=== PATIENT | female | born 1960 | race Caucasian/White ===

== ENCOUNTER 2016-11-02 00:07 | Emergency (ER) | payer BC ==
[2015-06-19 09:22] VITALS: BMI 33.0
[~2016-11-02 00:07] MED LIST: ASPIRIN EC81 M1 PO; BENADRYL50 MG PO; COREG6.25 MG PO; DYAZIDE 37.5/251 CAP PO; HEMOCYTE PLUS C1 CAP PO; HYDROCODONE-APA1 TAB PO; MINIPRESS2 MG PO; NEURONTIN 300300 MG PO; NORVASC5 MG PO; PLAVIX75 MG PO; POTASSIUM CHLO10 ME1 PO; PREDNISONE20 MG PO; PREDNISONE50 MG PO; PROTONIX20 MG PO; PROTONIX40 MG PO
== END 2016-11-02 02:08 | disposition home or self-care (01) ==
LOC: D.ER 00:07
DX: R22.42 Localized swelling, mass and lump, left lower limb (principal); I10 Essential (primary) hypertension; E78.5 Hyperlipidemia, unspecified; I73.9 Peripheral vascular disease, unspecified

== ENCOUNTER 2017-03-25 07:20 | Outpatient (CLI) | payer BC ==
--- NOTE | ~2017-03-25 | HEMODYNAMI ---
PATIENT:ALYSIA MISTRY MEDICAL RECORD: [id number] : 62 LOCATION:[facility] ADMISSION DATE: 03/25/17 Generatedon:03/25/201710:42 Patient name: ALYSIA MISTRY Patient #: [id number] SSN: : 1960 Date of study: 03/25/2017 Page: Of Hemodynamic Procedure Report Patient Data Patient Demographics Procedure consent was obtained First Name: ALYSIA Gender: Female Last Name: FIDELIA : 1960 [facility] Initial: L Age: 56 year(s) Patient #: [id number] Race: Additional ID: [id number] Contact details Address: [address] [place] [address] State: [place] City: [facility] Zip code: [address] Past Medical History History of disease Date Diagnosis Comments PVD Hypertension Allergies Allergen Reaction Date Comments Reported Sulfa drugs 07/05/2014 Other allergy 06/03/2015 Iodine Admission Admission Data Admission Date: 03/25/2017 Admission Time: 7:20 Height (in.): 63 BSA: 1.85 (m2) Height (cm.): 160.02 BMI: 32.06 (kg/m2) Weight (lbs.): 181 Weight (kg.): 82.1 Procedure Procedure Types Cath Procedure Miscellaneous Procedures Moderate Sedation up to 30 minutes Peripheral Cath Diagnostic Procedure Cath Peripheral Aowtg-Hvtnqbu-Kis-Off Peripheral vascular Intervention Stent Stent Iliac w/plasty Initial Stent-Fem/Popw/plasty Procedure Description Procedure Date Procedure Date: 03/25/2017 Procedure Start Time: 10:07 Procedure End Time: 10:41 Procedure Staff Name Function Peter Breaux MD Performing Physician Ayde Aguirre RT Scrub Biju Knapp RN Nurse Jewell Mccall RT Monitor Procedure Data Cath Procedure Fluoroscopy Diagnostic fluoroscopy Total fluoroscopy Time: 8.3 time: 8.3 min min Diagnostic fluoroscopy Total fluoroscopy dose: 772 dose: 772 mGy mGy Contrast Material Contrast Material Type Amount (ml) Isovue 300 158 Entry Location Entry Primary Successful Side Size Upsize Upsize Entry Closure Succes sful Closure Location (Fr) 1 (Fr) 2 (Fr) Remarks Device Remarks Femoral Right 5 Fr 6 Fr 6 Fr Exoseal artery Long Short Estimated blood loss: 5 ml Diagnostic catheters Device Type Used For End Catheter Placement Cordis Tempo 5Fr UF Multi-vessel catheter Angiography Procedure Complications No complications Procedure Medications Medication Administration Route Dosage Oxygen NC 2 l/min Lidocaine 2% added to field 20 Heparin Flush Bag added to field 2 bags (1000units/500ml NS) 0.9% NaCl 100 ml/hr Versed I.V. 2 mg Fentanyl I.V. 100 mcg Versed I.V. 1 mg Fentanyl I.V. 50 mcg Versed I.V. 1 mg Fentanyl I.V. 50 mcg Heparin Bolus I.V. 5000 units Versed I.V. 1 mg Fentanyl I.V. 50 mcg Hemodynamics Rest BSA: 1.85 (m2) O2 Consumption: Estimated: 182.29 (ml/min) O2 Consumption indexed : Estimated:98.54 (ml/min/m) Heart Rate: 76 (bpm) Snapshots Pre Cath Intra NCS Post Cath Vital Signs Time Heart Resp SPO2 etCO2 NIBP (mmHg) Rhythm Pain Sedation Rate (ipm) (%) (mmHg) Status Level (bpm) 9:52:22 74 14 100 0 131/58(110) NSR 0 (11) 10(A) , No pain 9:57:35 74 17 97 0 148/69(102) NSR 0 (11) 10(A) , No pain 10:01:43 68 14 97 0 119/62(106) NSR 0 (11) 10(A) , No pain 10:06:03 71 15 5 0 106/59(79) NSR 0 (11) 9(A) , No pain 10:10:13 74 19 100 0 127/70(103) NSR 0 (11) 9(A) , No pain 10:14:29 70 19 100 0 138/71(103) NSR 0 (11) 9(A) , No pain 10:18:41 69 18 98 0 120/62(95) NSR 0 (11) 9(A) , No pain 10:22:53 71 16 98 0 109/63(85) NSR 0 (11) 9(A) , No pain 10:27:05 71 22 97 0 106/58(87) NSR 0 (11) 9(A) , No pain 10:31:15 73 25 98 0 104/56(86) NSR 0 (11) 10(A) , No pain 10:35:25 71 17 100 0 116/66(89) NSR 0 (11) 10(A) , No pain 10:39:39 75 12 100 0 130/63(100) NSR 0 (11) 10(A) , No pain Medications Time Medication Route Dose Verified Delivered Reason Notes Effectiveness by by 9:56:20 Oxygen NC 2 Peter Buffie used for l/min Namita Knapp RN procedure 9:56:27 Lidocaine 2% added 20ml Peter Peter for local to vial Namita Breaux MD anesthetic field 9:56:33 Heparin Flush added 2 Peter Peter used for Bag to bags Namita Breaux MD procedure (1000units/500ml field NS) 9:56:47 0.9% NaCl 100 Peter Buffie Per physician ml/hr Namita Knapp RN 10:02:12 Versed I.V. 2 mg Peter Buffie for sedation Namita Knapp RN 10:02:20 Fentanyl I.V. 100 Peter Buffie for sedation mcg Namita Knapp RN 10:06:54 Versed I.V. 1 mg Peter Buffie for sedation Namita Knapp RN 10:06:58 Fentanyl I.V. 50 Peter Buffie for sedation mcg Namita Knapp RN 10:13:19 Versed I.V. 1 mg Peter Buffie for sedation Namita Knapp RN 10:13:24 Fentanyl I.V. 50 Peter Buffie for sedation mcg Namita Knapp RN 10:17:41 Heparin Bolus I.V. 5000 Peter Buffie for verifi ed units Namita Knapp RN anticoagulation with dr breaux 10:21:26 Versed I.V. 1 mg Peter Buffie for sedation Namita Knapp RN 10:21:31 Fentanyl I.V. 50 Peter Buffie for sedation mcg Namita Knapp RN Procedure Log Time Note 9:31:50 Patient Height : 63 inches 9:31:56 Patient Weight : 181 lbs 9:32:39 Diagnostic Cath status Elective 9:32:41 Ayde Aguirre RT(R) sent for patient. Start room use. 9:32:42 Time tracking: Regular hours 9:32:48 Plan of Care:Hemodynamics will remain stable., Cardiac rhythm will remain stable., Comfort level will be maintained., Respiratory function will remain adequate., Patient/ family verbilizes understanding of procedure., Procedure tolerated without complication., Recovers from procedure without complications.. 9:32:57 Use device set Femoral Dx 9:32:59 Acist Syringe opened to sterile field. 9:33:00 Bag Decanter opened to sterile field. 9:33:01 Medline Cath Pack opened to sterile field. 9:33:02 Terumo 5Fr Salley Sheath opened to sterile field. 9:33:04 St Rian 260cm J .035 wire opened to sterile field. 9:33:10 Acist Hand Control opened to sterile field. 9:33:11 Acist Manifold opened to sterile field. 9:33:12 Tegaderm 4 x 4 opened to sterile field. 9:51:01 Patient received from Pre/Post Procedure Room to CCL 3 Alert and oriented. Tansferred to table in Supine position. 9:51:02 Warm blankets applied, and rosanne hugger turned on for patient comfort. 9:51:02 Correct patient and procedure confirmed by team. 9:51:04 Signed procedure consent form obtained from patient. 9:51:05 ECG and BP/O2 sat monitors applied to patient. 9:51:06 Vital chart was started 9:51:11 Full Disclosure recording started 9:51:25 H&P Date Dictated: 03/17/2017 Within 30 days and on chart., H&P Addendum completed by physician on day of procedure. (MUST COMPLETE FOR ALL OUTPATIENTS). 9:51:26 Pre-procedure instructions explained to patient. 9:51:27 Pre-op teaching completed and patient verbalized understanding. 9:51:28 Family in waiting room. 9:51:33 Patient NPO since Midnight. 9:51:47 Is the patient allergic to Iodine/contrast media? No. 9:51:49 Was the patient premedicated? No 9:51:50 Is patient on blood thinner?Yes 9:51:53 ACC The patient was administered the following blood thiners within the last 24 hours: ACCPlavix 9:52:07 Patient diabetic? No. 9:52:10 Previous problem with sedation/anesthesia? No ? 9:52:15 Snore? Yes 9:52:16 Sleep apnea? Yes 9:52:18 Deviated septum? No 9:52:18 Opens mouth fully? Yes 9:52:19 Sticks out tongue? Yes 9:52:22 Airway obstruction? No ? 9:52:27 Dentures? Yes in tight 9:56:20 Oxygen 2 l/min NC was administered by Biju Knapp RN; used for procedure; :56: Lidocaine 2% 20ml vial added to field was administered by Peter Breaux MD; for local anesthetic; :56:33 Heparin Flush Bag (1000units/500ml NS) 2 bags added to field was administered by Peter Breaux MD; used for procedure; 9:56:47 0.9% NaCl 100 ml/hr was administered by Biju Knapp RN; Per physician; 10:00:53 Pre procedure: right dorsailis pedis pulse Doppler 10:00:56 Pre procedure: left dorsailis pedis pulse 1+ Palpable, but thready & weak; easily obliterated 10:01:00 Patient pain scale 0/10 ?. 10:01:15 IV patent on arrival in left forearm with 0.9% NaCl at [facility]. 10:01:21 Lab results completed and on chart. 10:01:24 Bilateral groins area was prepped with chlora-prep and draped in sterile fashion 10::27 Alarms reviewed by R. N. 10:: Sharps counted by scrub and verified by R.N. ::29 Physician arrived :: --------ALL STOP TIME OUT------ : Final Timeout: patient, procedure, and site verified with staff and physician. All members of the team are in agreement. 10:01:32 Bilateral groins site verified by team. 10::35 Physical assessment completed. ASA score P 2 - A patient with mild systemic disease as per Peter Breaux MD. 10:01:38 Sedation plan: IV Moderate Sedation Versed, Fentanyl 10:01:48 Procedure started. 10:02:12 Versed 2 mg I.V. was administered by Biju Knapp RN; for sedation; 10:02:20 Fentanyl 100 mcg I.V. was administered by Biju Knapp RN; for sedation; 10:06:54 Versed 1 mg I.V. was administered by Biju Knapp RN; for sedation; 10:06:58 Fentanyl 50 mcg I.V. was administered by Biju Knapp RN; for sedation; 10:07:53 Local anesthetic to right femoral artery with Lidocaine 2% by Peter Breaux MD.INITIAL ACCESS ONLY 10:08:03 A 5 Fr sheath was inserted into the Right Femoral artery 10:08:18 Baseline sample Acquired. 10:11:48 A CordDIREVO [employer] Tempo 5Fr UF catheter was advanced over the wire and used for Multi-vessel Angiography. 10:11:52 Abdominal angiogram w/ runoff was performed. 10:13:19 Versed 1 mg I.V. was administered by Biju Knapp RN; for sedation; 10:13:21 Cordis 6Fr Brite Tip 35cm Sheath opened to sterile field. 10:13:24 Fentanyl 50 mcg I.V. was administered by Biju Knapp RN; for sedation; 10:13:51 Arrow 6Fr 45cm Sheath opened to sterile field. 10:14:01 Terumo Super Stiff Angled 260cm glide wire opened to sterile field. 10:14:37 Sheath upsized to a 6 Fr Long. 10:14:49 long stiff glide wire advanced. 10:15:49 Terumo 6Fr Salley Sheath opened to sterile field. 10:17:41 Heparin Bolus 5000 units I.V. was administered by Biju Knapp RN; for anticoagulation; verified with dr breaux 10:19:38 Wire advanced across lesion. 10:20:42 Inflation number: 1 A Cordis Powerflex Pro 6.0 X 20 X 135 balloon was prepped and advanced across the Proximal Common Femoral, Left, then inflated to 7 JASMIN for 0:10 (min:sec). 10:20:46 Inflation number: 2 The Cordis Powerflex Pro 6.0 X 20 X 135 balloon was reinflated across the Proximal Common Femoral, Left, to 7 JASMIN for 0:10 (min:sec). 10:20:52 Inflation number: 3 The Cordis Powerflex Pro 6.0 X 20 X 135 balloon was reinflated across the Proximal Common Femoral, Left, to 7 JASMIN for 0:10 (min:sec). 10:21:26 Versed 1 mg I.V. was administered by Biju Knapp RN; for sedation; 10::31 Fentanyl 50 mcg I.V. was administered by Biju Knapp RN; for sedation; 10:23:01 Balloon removed over the wire. 10:24:14 Cordis SMART 6 X 40 X 120 stent was deployed across Proximal Common Femoral, Left . 10:24:27 Stent catheter was removed intact over wire. 10:25:07 Inflation number: 4 The Cordis Powerflex Pro 6.0 X 20 X 135 balloon was reinflated across the Proximal Common Femoral, Left, to 9 JASMIN for 0:10 (min:sec). 10:25:12 Inflation number: 5 The Cordis Powerflex Pro 6.0 X 20 X 135 balloon was reinflated across the Proximal Common Femoral, Left, to 11 JASMIN for 0:10 (min:sec). 10:25:22 Inflation number: 6 The Cordis Powerflex Pro 6.0 X 20 X 135 balloon was reinflated across the Proximal Common Femoral, Left, to 11 JASMIN for 0:10 (min:sec). 10:27:16 Balloon removed over the wire. 10:29:07 Inflation Number: 1 A Cordis Saida 6 x 29 x 135 stent was prepped and advanced across the Proximal Common Iliac, Left. The stent was deployed at 9 JASMIN for 0:10 (min:sec). 10:29:48 Stent catheter was removed intact over wire. 10:29:59 Sheath upsized to a 6 Fr Short. 10:30:08 Cordis 6Fr Exoseal opened to sterile field. 10:30:25 Wire removed. 10:30:37 Sheath removed intact; hemostasis achieved with Exoseal to the Right Femoral artery. 10:30:39 Procedure ended.(Physican Out) 10:34:33 Fluoroscopy time 08.30 minutes. 10:34:37 Fluoroscopy dose: 772 mGy 10:34:37 Flurop Dose total: 772 10:34:44 Contrast amount:Isovue 300 158ml. 10:34:47 Sharps counted by scrub and verified by R.N. 10:34:50 Insertion/operative site no bleeding no hematoma. 10:34:53 Post-op/insertion site Right Femoral artery dressed using a 4 x 4 and Tegaderm. 10:34:57 Post right femoral artery:stable 10:35:11 Post procedure rhythm: unchanged. 10:38:41 Estimated blood loss: 5 ml 10:38:43 Post procedure instruction explained to patient.Patient verbalizes understanding. 10:38:43 Patient needs reinforcement of post procedure teaching. 10:41:15 Procedure type changed to Cath procedure, Miscellaneous Procedures, Moderate Sedation up to 30 minutes, Peripheral Cath Diagnostic Procedure, Cath Peripheral, Kloul-Cbxyhud-Ibr-Off, Peripheral vascular Intervention, Stent, Stent Iliac w/plasty Initial, Stent-Fem/Popw/plasty 10:41:26 Procedure and supply charges have been captured, reviewed, submitted and are correct. 10:41:31 Procedure Complication : No complications 10:41:34 Vital chart was stopped 10:41:34 See physician's report for complete and final results. 10:41:38 Report given to Pre/Post Procedure Room. 10:41:40 Patient transfered to Pre/Post Procedure Room with Stretcher. 10:41:42 Procedure ended. 10:41:42 Full Disclosure recording stopped 10:41:50 ACC-PCI Only Patient was given prescriptions, or instructed by Peter Breaux MD to start/continue the following medications upon discharge: Plavix 10:41:52 End room use (Document Last) Intervention Summary Intervention Notes Time ActionType Lesion and Equipment Action# Pressure Duration Attributes Used 10:20:42 Inflate Proximal Cordis 1 7 00:10 balloon Common Powerflex Femoral, Pro 6.0 X Left 20 X 135 balloon 10:20:46 Reinflate Proximal Cordis 2 7 00:10 balloon Common Powerflex Femoral, Pro 6.0 X Left 20 X 135 balloon 10:20:52 Reinflate Proximal Cordis 3 7 00:10 balloon Common Powerflex Femoral, Pro 6.0 X Left 20 X 135 balloon 10:24:14 Deploy self Proximal Cordis 1 expanding Common SMART 6 X stent Femoral, 40 X 120 Left stent 10:25:07 Reinflate Proximal Cordis 4 9 00:10 balloon Common Powerflex Femoral, Pro 6.0 X Left 20 X 135 balloon 10:25:12 Reinflate Proximal Cordis 5 11 00:10 balloon Common Powerflex Femoral, Pro 6.0 X Left 20 X 135 balloon 10:25:22 Reinflate Proximal Cordis 6 11 00:10 balloon Common Powerflex Femoral, Pro 6.0 X Left 20 X 135 balloon 10:29:[address] stent Proximal Cordis 1 9 00:10 Common Saida 6 Iliac, Left x 29 x 135 stent Device Usage Item Name Manufacture Quantity Catalog Hospital Part Current Minimal Lot # / Number Charge Number Stock Stock Serial# Code Acist Acist 1 [id number] [id number] [id number] 302832 20 Syringe [employer] Inc Bag Microtek 1 2002S 424659 42806 433240 5 Decanter [employer] Inc. Medline Cardinal 1 [id number] [id number] 82406 892454 5 Cath Pack Health Terumo Terumo 1 [id number] 960663 883321 745199 [address] Rian St Rian 1 684239 189768 986240 372337 30 260cm J .035 wire Acist Acist 1 20832 480557 887642 149932 5 Hand Medical Control Systems Inc Acist Acist 1 59429 593179 393767 750680 5 Manifold Medical Systems Inc Tegaderm 3M 1 1626W 845567 954446 277728 5 4 x 4 Cordis Cardinal 1 [id number] 786760 430607 002183 10 Tempo 5Fr Health UF catheter Cordis Cardinal 1 [id number] 335880 177909 742285 1 6Fr Brite Health Tip 35cm Sheath Arrow 6Fr Teleflex 1 [id number] 329926 907070 394995 5 45cm Sheath Terumo Terumo 1 [id number] 466342 817394 433842 5 Super Stiff Angled 260cm glide wire Terumo Terumo 1 [id number] 630734 672760 804665 40 6Fr Salley Sheath Cordis Cardinal 1 [id number] 973277 324637 461875 5 Powerflex Health Pro 6.0 X 20 X 135 balloon Cordis Cardinal 1 [id number] 152649 451503 0 176 39898 SMART 6 X Health 40 X 120 stent Cordis Cardinal 1 [id number] 253905 533724 5 175 71381 Saida 6 Health x 29 x 135 stent Cordis Cardinal 1 [id number] 230766 004512 713631 10 6Fr Health Exoseal Signature Audit [place] Stage Time Signature Unsigned Intra-Procedure 03/25/2017 Jewell Mccall 10:42:35 AM RT(R) Signatures Monitor : Jewell Mccall RT Signature : Date : Time : [address] [place] [address]
[2017-03-25] MEDS ORDERED: CARDURA4 MG PO (07:39)
[2017-03-25] MEDS ORDERED: DYAZIDE 37.5/251 CAP PO (07:40)
[2017-03-25 07:45] VITALS: BP 129/52; BMI 33.0
[2017-03-25 08:00] LABS: BASOPHILS 0.5 % (0-2); EOSINOPHILS 1.8 % (0-7); HEMATOCRIT 37.6 % (36.0-48.0); HEMOGLOBIN 12.5 g/dL (12-16); IMMATURE GRANULOCYTES 0.1 % (0-5); MCH 27.6 pg (26.0-34.0); MCHC 33.2 g/dL (31.0-37.0); MEAN PLATELET VOLUME 9.5 fL (7.4-10.4); MONOCYTES 5.8 % (2-11); NEUTROPHILS 71.8 % (40-80); PLATELET COUNT 446 10x3/uL (130-400); RBC 4.53 10x6/uL (4.00-5.40); RDW 13.8 % (11.5-14.5); WBC 9.8 10x3/uL (4.8-10.8)
[2017-03-25 08:07] LABS: ANION GAP 11.4 mmol/L (8-16); CALCIUM 9.2 mg/dL (8.5-10.1); CARBON DIOXIDE 28.4 mmol/L (21.0-32.0); CREATININE - SERUM 1.3 mg/dL (0.6-1.3)
[2017-03-25 08:09] LABS: POTASSIUM - SERUM 2.8 mmol/L (3.5-5.1)
--- NOTE | 2017-03-25 11:05 | NUR ---
2L NC, NO RESP DISTRESS NOTED. RIGHT GROIN 6F EXOSEAL CDI, NO BLEEDING OR HEMATOMA NOTED. NO C/O PAIN OR NAUSEA. VSS. FAMILY AT BEDSIDE, CALL LIGHT WITHIN REACH.
--- NOTE | 2017-03-25 14:01 | NUR ---
HOB ELEVATED 30 DEGREES. RIGHT GROIN 6F EXOSEAL CDI, NO BLEEDING OR HEMATOMA NOTED.
--- NOTE | 2017-03-25 14:11 | NUR ---
LEFT FA PIV D/C'D WITH CATHETER INTACT, BAND AID TO SITE. UP TO RESTROOM TO VOID.
--- NOTE | 2017-03-25 14:32 | NUR ---
RIGHT GROIN REMAINS C/D/I AFTER AMBULATING. BACK TO BEDSIDE TO DRESS. D/C INSTRUCTIONS DISCUSSSED WITH PATIENT AND AT BEDSIDE. WHEELED OUT VIA WHEELCHAIR BY CATH TEAM.
--- NOTE | 2017-04-08 16:56 | OP ---
PATIENT NAME: ALYSIA MISTRY MEDICAL RECORD: [id number] :62 LOCATION:D.CAT ADMISSION DATE: SURGEON: JUDY MAURICE MD DATE OF OPERATION: 03/25/2017 DATE OF SERVICE: 03/25/2017 PROCEDURES: 1. PTCA stent, iliac, left. 2. GRADUATE TEACHING ASSOCIATE stent, common femoral, left. 3. Aortofemoral runoff. 4. Abdominal aortography. INDICATION: Claudication and peripheral vascular disease. PROCEDURE IN DETAIL: After informed consent was obtained and after detailed explanation of risks, benefits as well as alternative therapies, the patient elected to proceed with angiogram and angioplasty. The right femoral area was prepped and draped in normal sterile fashion. The right femoral artery was cannulated via modified Seldinger technique with placement of a 6-Kyrgyz rphuzf-ikc-zzyo sheath. All catheters exchanged through this sheath. FINDINGS: The abdominal aortography was performed. The catheter was pulled down for aortofemoral runoff. Abdominal aortography reveals no significant abdominal aortic disease. No dissection or aneurysm formation. No renal artery stenosis. RIGHT LEG: A. Iliac: The common internal and external iliacs have piqb-sy-vafwqfkm irregularities, but no flow-limiting stenosis. B. Femoral system: The common and deep femoral are widely patent. The superficial femoral has a total occlusion in the mid vessel. This is approximately 60 cm of total occlusion, his then reconstitutes distally. The distal SFA appears to be patent. C. Popliteal and infrapopliteal vessels appear to be patent with preserved 3-vessel runoff to the foot. LEFT LEG: A. Iliac: The common iliac has 80% to 90% stenosis. There is then a previously placed stent in the external iliac that is patent. After this, the common femoral has 80% to 90% stenosis after this. The SFA is totally occluded, but there is a femoral popliteal graft that is patent. The distal vasculature is severely diffusely diseased, but patent. B. GRADUATE TEACHING ASSOCIATE stent of the common femoral and iliac: The iliac was addressed with 7 x 29 Saida stent. The common femoral with a 6 x 40 SMART stent. Balloon dilatation was made with a 6.0 balloon first. This yielded suboptimal results with severe intimal dissection requiring stenting. OVERALL IMPRESSION: Successful percutaneous transluminal angioplasty stent of the left iliac and left common femoral. Both going from 80% to 90% initial stenosis to 0% residual. TRANSINT:[id number] Voice Confirmation ID: [id number] DOCUMENT ID: [id number] OPERATIVE REPORT [id number] ALYSIA MISTRY JEFFREY MD at 1656 CC: [id number] DICTATION DATE: 03/25/17 1037 IN FLIGHT REFUELING MANAGER: 03/25/17 1249 DEP CLI 03/25/17 [place] [id number]
== END 2017-03-25 14:34 | disposition home or self-care (01) ==
LOC: D.CATH 07:20
PROVIDERS: Internal Medicine Interventional Cardiology
DX: I70.213 Atherosclerosis of native arteries of extremities with intermittent claudication, bilateral legs (principal); I10 Essential (primary) hypertension; R00.2 Palpitations; Z87.891 Personal history of nicotine dependence

== ENCOUNTER → 2017-03-30 14:15 | Outpatient (CLI) | payer BC ==
[2017-03-25 07:45] VITALS: BMI 33.0
[~2017-03-30 14:15] MED LIST changes: +CARDURA4 MG PO
== END | disposition home or self-care (01) ==
LOC: D.MAMMO 09:45
DX: Z12.31 Encounter for screening mammogram for malignant neoplasm of breast (principal)

== ENCOUNTER 2017-08-06 11:14 | Inpatient (IN) | payer BC ==
[~2017-08-06] VITALS: Ht 157.5 cm; Wt 80.7 kg
[2017-08-06 11:51] LABS: APPEARANCE CLOUDY (CLEAR); BILIRUBIN NEGATIVE (NEGATIVE); COLOR YELLOW (YELLOW); GLUCOSE NEGATIVE (NEGATIVE); KETONE MODERATE mg/dL (NEGATIVE); NITRITE NEGATIVE (NEGATIVE); PROTEIN 3+ mg/dL (NEGATIVE); UROBILINOGEN NORMAL (NORMAL)
[2017-08-06 11:53] LABS: BACTERIA MANY /hpf (NONE SEEN); EPITHELIAL CELLS 0-5 /hpf (0-5); RED CELLS - URINE 0-5 /hpf (0-5)
[2017-08-06 12:01] LABS: BASOPHILS 0.2 % (0-2); EOSINOPHILS 0.5 % (0-7); HEMATOCRIT 37.1 % (36.0-48.0); HEMOGLOBIN 12.5 g/dL (12-16); IMMATURE GRANULOCYTES 0.4 % (0-5); LYMPHOCYTES 13.5 % (15-50); MCH 26.4 pg (26.0-34.0); MCHC 33.7 g/dL (31.0-37.0); MCV 78.3 fL (80.0-100.0); MEAN PLATELET VOLUME 9.3 fL (7.4-10.4); MONOCYTES 5.9 % (2-11); NEUTROPHILS 79.5 % (40-80); PLATELET COUNT 462 10x3/uL (130-400); RBC 4.74 10x6/uL (4.00-5.40); RDW 13.4 % (11.5-14.5); WBC 13.9 10x3/uL (4.8-10.8)
[2017-08-06 12:13] LABS: ALBUMIN 3.2 g/dL (3.4-5.0); ANION GAP 14.6 mmol/L (8-16); BILIRUBIN - TOTAL 0.4 mg/dL (0.2-1.3); CALCIUM 9.7 mg/dL (8.5-10.1); CARBON DIOXIDE 25.9 mmol/L (21.0-32.0); CREATININE - SERUM 1.2 mg/dL (0.6-1.3); POTASSIUM - SERUM 3.5 mmol/L (3.5-5.1); PROTEIN - SERUM 8.7 g/dL (6.4-8.2)
[2017-08-06 16:31] LABS: CKMB 0.4 U/L (0.0-3.6); CREATINE KINASE 34 UL (21-215)
[2017-08-06 16:33] LABS: TROPONIN-I < 0.017 ng/mL (0.000-0.060)
[2017-08-06 17:47] VITALS: BP 143/59; BMI 31.7
[2017-08-07 06:20] VITALS: BP 108/41
[2017-08-07 06:25] LABS: BASOPHILS 0.2 % (0-2); EOSINOPHILS 2.2 % (0-7); HEMATOCRIT 34.3 % (36.0-48.0); HEMOGLOBIN 11.4 g/dL (12-16); IMMATURE GRANULOCYTES 0.4 % (0-5); MCH 26.4 pg (26.0-34.0); MCHC 33.2 g/dL (31.0-37.0); MCV 79.4 fL (80.0-100.0); MEAN PLATELET VOLUME 9.3 fL (7.4-10.4); MONOCYTES 7.5 % (2-11); NEUTROPHILS 72.7 % (40-80); PLATELET COUNT 433 10x3/uL (130-400); RBC 4.32 10x6/uL (4.00-5.40); RDW 13.4 % (11.5-14.5); WBC 11.1 10x3/uL (4.8-10.8)
[2017-08-07 07:02] LABS: CALC OSMOLALITY 268 mosm/kg (275-300); CALCIUM 8.8 mg/dL (8.5-10.1); CARBON DIOXIDE 23.6 mmol/L (21.0-32.0); CHLORIDE - SERUM 99 mmol/L (98-107); CKMB 0.7 U/L (0.0-3.6); CREATINE KINASE 37 UL (21-215); GLUCOSE 116 mg/dL (74-106); POTASSIUM - SERUM 3.2 mmol/L (3.5-5.1); SODIUM 133 mmol/L (136-145); TROPONIN-I < 0.017 ng/mL (0.000-0.060); UREA NITROGEN 17 mg/dL (7-18); eGFR NON AFRICAN AMERICAN 61 mL/min (90-120)
[2017-08-07 08:33] VITALS: BP 123/58
[2017-08-07 12:06] VITALS: BP 106/68
[2017-08-07 16:29] VITALS: BP 129/65
[2017-08-07 20:00] VITALS: BP 110/39
[2017-08-08 04:00] VITALS: BP 124/60
[2017-08-08 05:34] LABS: ALBUMIN 2.4 g/dL (3.4-5.0); BILIRUBIN - TOTAL 0.21 mg/dL (0.2-1.3); CALCIUM 8.5 mg/dL (8.5-10.1); CARBON DIOXIDE 26.4 mmol/L (21.0-32.0); CREATININE - SERUM 0.9 mg/dL (0.6-1.3); PROTEIN - SERUM 6.6 g/dL (6.4-8.2)
[2017-08-08 05:35] LABS: ANION GAP 11.3 mmol/L (8-16); POTASSIUM - SERUM 3.7 mmol/L (3.5-5.1)
[2017-08-08 08:25] VITALS: BP 95/73
[2017-08-08 11:47] VITALS: BP 112/58
[2017-08-08 13:02] VITALS: Ht 157.5 cm; Wt 80.7 kg
[2017-08-08 15:54] VITALS: BP 109/44
[2017-08-08 17:30] VITALS: BP 155/58
[2017-08-08 21:15] VITALS: BP 152/62
[2017-08-09 04:00] VITALS: BP 149/66
[2017-08-09 05:59] LABS: ALBUMIN 2.4 g/dL (3.4-5.0); ANION GAP 12.6 mmol/L (8-16); BILIRUBIN - TOTAL 0.25 mg/dL (0.2-1.3); CALCIUM 8.7 mg/dL (8.5-10.1); CARBON DIOXIDE 28.9 mmol/L (21.0-32.0); CREATININE - SERUM 0.9 mg/dL (0.6-1.3); POTASSIUM - SERUM 3.5 mmol/L (3.5-5.1); PROTEIN - SERUM 6.8 g/dL (6.4-8.2)
[2017-08-09 08:46] VITALS: BP 121/64
[2017-08-09 11:53] VITALS: BP 134/66
[2017-08-09 15:59] VITALS: BP 173/77
[2017-08-09 20:56] VITALS: BP 142/61
[2017-08-10 01:20] VITALS: BP 150/66
[2017-08-10 06:05] LABS: ALBUMIN 2.5 g/dL (3.4-5.0); ANION GAP 13.9 mmol/L (8-16); BILIRUBIN - TOTAL 0.3 mg/dL (0.2-1.3); CARBON DIOXIDE 27.2 mmol/L (21.0-32.0); CREATININE - SERUM 0.9 mg/dL (0.6-1.3); POTASSIUM - SERUM 3.1 mmol/L (3.5-5.1)
[2017-08-10 06:40] VITALS: BP 117/55
[2017-08-10] MEDS ORDERED: POTASSIUM CHLO20 MEQ PO (07:04)
[2017-08-10] MEDS ORDERED: ADVAIR 250/501 DISK INH (07:06)
[2017-08-10] MEDS ORDERED: LEVAQUIN750 MG PO (07:06)
[2017-08-10 08:35] VITALS: BP 125/69
[2017-08-10 15:24] VITALS: BP 133/62
== END 2017-08-10 16:53 | disposition home or self-care (01) | DRG 640 ==
LOC: D.ER 11:14 → D.M2 17:08 → OBSVTIME 17:09 → D.M2 08-07 18:06
PROVIDERS: Family Medicine
DX: E86.0 Dehydration (principal); J18.9 Pneumonia, unspecified organism; E87.6 Hypokalemia; I10 Essential (primary) hypertension; I70.209 Unspecified atherosclerosis of native arteries of extremities, unspecified extremity; K52.9 Noninfective gastroenteritis and colitis, unspecified

== ENCOUNTER → 2017-12-30 07:56 | Outpatient (CLI) | payer BC ==
[~2017-12-30] VITALS: Ht 157.5 cm; Wt 77.3 kg
--- NOTE | ~2017-12-30 | OP ---
PATIENT NAME: ALYSIA MISTRY MEDICAL RECORD: [id number] :62 LOCATION:D.CAT ADMISSION DATE: SURGEON: JUDY MAURICE MD DATE OF OPERATION: 12/30/2017 PROCEDURES: 1. MIDDLE OR INTERMEDIATE SCHOOL PRINCIPAL, left iliac. 2. MIDDLE OR INTERMEDIATE SCHOOL PRINCIPAL, left common femoral. 3. Aortofemoral runoff. 4. Abdominal aortography. INDICATION: Claudication and peripheral vascular disease. PROCEDURE IN DETAIL: After informed consent was obtained and after a detailed description of risks, benefits as well as alternative therapies, the patient elected to proceed with angiogram and angioplasty. The right femoral area was prepped and draped in normal sterile fashion. Right femoral artery was cannulated via modified Seldinger technique with placement of 6-Burmese sheath. All catheters exchanged through this sheath. FINDINGS: The abdominal aortography was performed. The catheter was pulled down for aortofemoral runoff. Abdominal aortography reveals no significant abdominal aortic disease, no dissection or aneurysm formation. RIGHT LEG: A. Iliac: The common internal and external iliacs have previously placed stents, these are widely patent. B. Femoral system: The common and deep femoral are widely patent. Superficial femoral has a 95% stenosis proximally followed by multiple areas of 90% to 95% stenosis. The distal superficial femoral reconstitutes via collaterals off the deep. It does appear to have decent lumen suitable for grafting. C. Popliteal and infrapopliteal vessels do appear to be diffusely diseased, but patent. LEFT LEG: A. Iliac: The common internal and external iliacs have previously placed stents. There is 80% in-stent restenosis times 2. B. Femoral system: The common and deep femoral are patent at the distal end of the stents and in the common femoral there is 80% stenosis. The superficial femoral was totally occluded throughout its entire course. It reconstitutes distally off collaterals from the deep femoral system. It does appear to have a good lumen suitable for grafting. C. Popliteal and infrapopliteal vessels appear to be patent with good 3-vessel runoff to the foot. MIDDLE OR INTERMEDIATE SCHOOL PRINCIPAL OF THE ILIAC AND COMMON FEMORAL LEFT: We were able to place jpsbzz-kjs-mbxm sheath and used a 6.0 balloon for high pressure MIDDLE OR INTERMEDIATE SCHOOL PRINCIPAL of the areas of in-stent restenosis in the common femoral, at the very distal end of the stents. Result was 0% residual stenosis with bahai of brisk distal flow allowing the patient to be evaluated for femoral popliteal bypass surgery. OVERALL IMPRESSION: Successful MIDDLE OR INTERMEDIATE SCHOOL PRINCIPAL for in-stent restenosis of the left iliac and common femoral, opening this area up to the common femoral with good flow. Superficial femoral was totally occluded, cannot be approached via transcatheter approach, but a femoral popliteal bypass surgery would be an option for this OPERATIVE REPORT [id number] ALYSIA MISTRY MILDRED patient as well as femoral popliteal bypass for the right leg. TRANSINT:[id number] Voice Confirmation ID: [id number] DOCUMENT ID: [id number] JUDY MAURICE MD at 1325 CC: [id number] DICTATION DATE: 12/30/17 1123 PATIENT RELATIONS DIRECTOR: 12/30/17 1202 DEP CLI 12/30/17 [place] [id number] [place] [address]
--- NOTE | ~2017-12-30 | HEMODYNAMI ---
PATIENT:ALYSIA MISTRY MEDICAL RECORD: [id number] : 62 LOCATION:[facility] ADMISSION DATE: 12/30/17 Generatedon:12/30/201711:26 Patient name: ALYSIA MISTRY Patient #: [id number] SSN: : 1960 Date of study: 12/30/2017 Page: Of Hemodynamic Procedure Report Patient Data Patient Demographics Procedure consent was obtained First Name: ALYSIA Gender: Female Last Name: FIDELIA : 1960 [facility] Initial: MILDRED Age: 57 year(s) Patient #: [id number] Race: Additional ID: [id number] Contact details Address: [address] [place] [address] State: [place] City: [facility] [place] Zip code: [address] Past Medical History History of disease Date Diagnosis Comments PVD Hypertension Allergies Allergen Reaction Date Comments Reported Sulfa drugs 07/05/2014 Other allergy 06/03/2015 Iodine Sulfa drugs 12/30/2017 Admission Admission Data Admission Date: 12/30/2017 Admission Time: 7:56 Lab Results Lab Result Date: 12/30/2017 Lab Result Time: 0:00 Biochemistry Name Units Result Min Max BUN mg/dl 11 --(-*--)-- 7 18 Creatinine mg/dl 1.1 --(--*-)-- 0.6 1.3 CBC Name Units Result Min Max Hemoglobin g/dl 12.5 *-(----)-- 13.5 17.5 Procedure Procedure Types Cath Procedure Diagnostic Procedure Sedation Charges Moderate Sedation up to 15 minutes Peripheral Cath Diagnostic Procedure Cath Peripheral Ngepa-Oqjlcoc-Xtw-Off Peripheral vascular Intervention Angioplasty Angioplasty Fem/Pop Angioplasty Iliac Initial Procedure Description Procedure Date Procedure Date: 12/30/2017 Procedure Start Time: 11:04 Procedure End Time: 11:23 Procedure Staff Name Function Peter Breaux MD Performing Physician Jewell Mccall RT Monitor Lata Hernandez RT Scrub Biju Knapp RN Nurse Procedure Data Cath Procedure Fluoroscopy Diagnostic fluoroscopy Total fluoroscopy Time: 4.7 time: 4.7 min min Diagnostic fluoroscopy Total fluoroscopy dose: 396 dose: 396 mGy mGy Contrast Material Contrast Material Type Amount (ml) Isovue 300 95 Entry Location Entry Primary Successful Side Size Upsize Upsize Entry Closure Succes sful Closure Location (Fr) 1 (Fr) 2 (Fr) Remarks Device Remarks Femoral Right 5 Fr 6 Fr 6 Fr Exoseal artery Long Short Estimated blood loss: 5 ml Diagnostic catheters Device Type Used For End Catheter Placement DIAGNOSTIC UF 5Fr Multi-vessel catheter ([id number]) Angiography Procedure Complications No complications Procedure Medications Medication Administration Route Dosage Oxygen NC 2 l/min Lidocaine 2% added to field 20 Heparin Flush Bag added to field 2 bags (1000units/500ml NS) 0.9% NaCl I.V. 100 ml/hr Versed I.V. 2 mg Fentanyl I.V. 100 mcg Heparin Bolus I.V. 5000 units Versed I.V. 1 mg Fentanyl I.V. 50 mcg Versed I.V. 1 mg Fentanyl I.V. 50 mcg Hemodynamics Rest Heart Rate: 83 (bpm) Snapshots Pre Cath Intra NCS Post Cath Vital Signs Time Heart Resp SPO2 etCO2 NIBP (mmHg) Rhythm Pain Sedation Rate (ipm) (%) (mmHg) Status Level (bpm) 10:56:42 68 18 96 22.4 126/48(90) NSR 0 (11) 10(A) , No pain 11:00:37 66 19 93 20 100/55(72) NSR 0 (11) 10(A) , No pain 11:05:32 69 13 94 17.9 115/60(79) NSR 0 (11) 10(A) , No pain 11:09:54 72 15 98 25.3 119/63(102) NSR 0 (11) 9(A) , No pain 11:15:02 69 17 98 20.1 109/60(95) NSR 0 (11) 9(A) , No pain 11:19:26 74 18 98 27.6 116/56(81) NSR 0 (11) 10(A) , No pain 11:23:48 78 10 98 10.4 100/55(82) NSR 0 (11) 10(A) , No pain Medications Time Medication Route Dose Verified Delivered Reason Notes Effectiveness by by 10:54:39 Oxygen NC 2 Peter Ivy used for l/min Namita Knapp RN procedure 10:54:47 Lidocaine 2% added 20ml Peter Peter for local to vial Namita Breaux MD anesthetic field 10:54:53 Heparin Flush added 2 Peter Peter used for Bag to bags Namita Breaux MD procedure (1000units/500ml field NS) 10:55:01 0.9% NaCl I.V. 100 Peter Buffie Per physician ml/hr Namita Knapp RN 11:03:33 Versed I.V. 2 mg Peter Buffie for sedation Namita Knapp RN 11:03:38 Fentanyl I.V. 100 Peter Buffie for sedation mcg Namita Knapp RN 11:08:05 Versed I.V. 1 mg Peter Buffie for sedation Namita Knapp RN 11:08:09 Fentanyl I.V. 50 Peter Buffie for sedation mcg Namita Knapp RN 11:10:09 Heparin Bolus I.V. 5000 Peter Mcadamsie for verifi ed units Namita Knapp RN anticoagulation with dr breaux 11:14:17 Versed I.V. 1 mg Peter Buffie for sedation Namita Knapp RN 11:14:20 Fentanyl I.V. 50 Peter Buffie for sedation mcg Namita Knapp RN Procedure Log Time Note 10:33:51 Biju Knapp RN sent for patient. Start room use. 10:33:52 Time tracking: Regular hours (M-F 7:00 - 5:00) 10:33:55 Plan of Care:Hemodynamics will remain stable., Cardiac rhythm will remain stable., Comfort level will be maintained., Respiratory function will remain adequate., Patient/ family verbilizes understanding of procedure., Procedure tolerated without complication., Recovers from procedure without complications.. 10:33:57 Signed procedure consent form obtained from patient. 10:34:15 H&P Date Dictated: 12/22/2017 Within 30 days and on chart., H&P Addendum completed by physician on day of procedure. (MUST COMPLETE FOR ALL OUTPATIENTS). 10:34:27 Patient allergic to Sulfa drugs 10:41:49 Patient received from Pre/Post Procedure Room to [facility] 2 Alert and oriented. Tansferred to table in Supine position. 10:41:50 Warm blankets applied, and rosanne hugger turned on for patient comfort. 10:41:50 Correct patient and procedure confirmed by team. 10::51 ECG and BP/O2 sat monitors applied to patient. ::47 Lab Result : Hemoglobin 12.5 g/dl ::47 Lab Result : Creatinine 1.1 mg/dl ::47 Lab Result : BUN 11 mg/dl 10:54:39 Oxygen 2 l/min NC was administered by Biju Knapp RN; used for procedure; ::47 Lidocaine 2% 20ml vial added to field was administered by Peter Breaux MD; for local anesthetic; 10:54:53 Heparin Flush Bag (1000units/500ml NS) 2 bags added to field was administered by Peter Breaux MD; used for procedure; 10:55:01 0.9% NaCl 100 ml/hr I.V. was administered by Biju Knapp RN; Per physician; 10:55:04 Vital chart was started 10:56:01 Baseline sample Acquired. 10:56:59 Rhythm: sinus rhythm 10:57:01 Full Disclosure recording started 10:57:02 Pre-procedure instructions explained to patient. 10:57:02 Pre-op teaching completed and patient verbalized understanding. 10:57:04 Family in patients room. 10:57:06 Patient NPO since Midnight. 10:57:35 Is the patient allergic to Iodine/contrast media? No. 10:57:37 Was the patient premedicated? No 10:57:37 Is patient on blood thinner?Yes 10:57:40 ACC The patient was administered the following blood thiners within the last 24 hours: ACCPlavix 10:57:44 Patient diabetic? No. 10:57:45 If diabetic: On Metformin? No 10:57:47 Previous problem with sedation/anesthesia? No ? 10:57:49 Snore? Yes 10:57:51 Sleep apnea? No 10:57:52 Deviated septum? No 10:57:53 Opens mouth fully? Yes 10:57:53 Sticks out tongue? Yes 10:57:55 Airway obstruction? No ? 10:58:00 Dentures? Yes in tight 10:58:04 Pre procedure: right dorsailis pedis pulse 2+ Normal; easily identifiable; not easily obliterated 10:58:07 Pre procedure: left dorsailis pedis pulse 2+ Normal; easily identifiable; not easily obliterated 10:58:09 Patient pain scale 0/10 ?. 10:58:15 IV patent on arrival in left forearm with 0.9% NaCl at [facility]. 10:58:18 Lab results completed and on chart. 10:58:40 Bilateral groins area was prepped with chlora-prep and draped in sterile fashion 10:58:41 Alarms reviewed by R. N. 10:58:41 Sharps counted by scrub and verified by R.N. 11:00:41 Zero performed for pressure channel P1 11::11 Physician arrived 11::12 --------ALL STOP TIME OUT------ 11::12 Final Timeout: patient, procedure, and site verified with staff and physician. All members of the team are in agreement. 11:01:15 Bilateral groins site verified by team. 11:01:18 Physical assessment completed. ASA score P 2 - A patient with mild systemic disease as per Peter Breaux MD. 11:01:22 Sedation plan: IV Moderate Sedation Medication:Versed, Fentanyl 11:01:35 Baseline sample Acquired. 11:01:58 Use device set Radial Dx or PCI 11:02:00 ACIST Syringe (81787) opened to sterile field. 11:02:00 Medline Cath Pack ([id number]) opened to sterile field. 11:02:01 Bag Decanter (2002S) opened to sterile field. 11:02:01 DIAGNOSTIC WIRE .035 260cm J wire (019309) opened to sterile field. 11:02:02 ACIST Hand Control (74400) opened to sterile field. 11:02:03 ACIST Manifold (16338) opened to sterile field. 11:02:04 Tegaderm 4 x 4 (1626W) opened to sterile field. 11:02:12 SHEATH 5Fr Prelude ([id number]) opened to sterile field. 11:03:28 Procedure started. 11:03:33 Versed 2 mg I.V. was administered by Biju Knapp RN; for sedation; 11:03:38 Fentanyl 100 mcg I.V. was administered by Biju Knapp RN; for sedation; 11:04:12 Local anesthetic to right femoral artery with Lidocaine 2% by Peter Breaux MD.INITIAL ACCESS ONLY 11:04:29 A 5 Fr sheath was inserted into the Right Femoral artery 11:04:42 A DIAGNOSTIC UF 5Fr catheter ([id number]) was advanced over the wire and used for Multi-vessel Angiography. 11:05:20 Abdominal angiogram w/ runoff was performed. 11:08:05 Versed 1 mg I.V. was administered by Biju Knapp RN; for sedation; 11:08:09 Fentanyl 50 mcg I.V. was administered by Biju Knapp RN; for sedation; 11:09:48 GLIDE WIRE Super Stiff Angled 260cm (GB3958) opened to sterile field. 11:09:50 SHEATH 6FR Destination (RSR01) opened to sterile field. 11:09:51 SHEATH 6Fr Prelude ([id number]) opened to sterile field. 11:09:51 INFLATOR Merit BasixCompak (XW5593) opened to sterile field. 11:10:09 Heparin Bolus 5000 units I.V. was administered by Biju Knapp RN; for anticoagulation; verified with dr breaux 11:10:14 Catheter removed. 11:10:30 Proceeding to intervention. 11:10:39 Sheath upsized to a 6 Fr Long. 11:10:58 TORQUE DEVICE PLASTIC .038 ( TD01) opened to sterile field. 11:12:08 Inflate balloon Inflation number: 1 A POWERFLEX PRO 6.0 X 20 X 135 balloon ([id number]) was prepped and advanced across the Proximal Common Femoral, Left, then inflated to 6 JASMIN for 0:10 (min:sec). 11:14:15 Inflation number: 1 The POWERFLEX PRO 6.0 X 20 X 135 balloon ([id number]) was reinflated across the Proximal Common Iliac, Left, to 15 JASMIN for 0:10 (min:sec). 11:14:17 Versed 1 mg I.V. was administered by Biju Knapp RN; for sedation; 11:14:20 Fentanyl 50 mcg I.V. was administered by Biju Knapp RN; for sedation; 11:15:05 Inflation number: 2 The POWERFLEX PRO 6.0 X 20 X 135 balloon ([id number]) was reinflated across the Proximal Common Iliac, Left, to 17 JASMIN for 0:10 (min:sec). 11:16:01 Balloon removed over the wire. 11:16:09 Sheath upsized to a 6 Fr Short. 11:20:41 EXOSEAL 6Fr (EX600) opened to sterile field. 11:20:52 Sheath removed intact; hemostasis achieved with Exoseal to the Right Femoral artery. 11:20:53 Procedure ended.(Physican Out) 11:21:02 Fluoroscopy time 04.70 minutes. 11:21:06 Fluoroscopy dose: 396 mGy 11:21:06 Flurop Dose total: 396 11:21:09 Contrast amount:Isovue 300 95ml. 11:21:15 Sharps counted by scrub and verified by R.N. 11:21:19 Insertion/operative site no bleeding no hematoma. 11:21:22 Post-op/insertion site Right Femoral artery dressed using a 4 x 4 and Tegaderm. 11:21:24 Post right femoral artery:stable 11:21:26 Post Procedure Pulses reassessed and unchanged 11:21:28 Post procedure rhythm: unchanged. 11:21:31 Estimated blood loss: 5 ml 11:21:32 Post procedure instruction explained to patient.Patient verbalizes understanding. 11:21:32 Patient needs reinforcement of post procedure teaching. 11:23:10 Procedure type changed to Cath procedure, Diagnostic procedure, Sedation Charges, Moderate Sedation up to 15 minutes, Peripheral Cath Diagnostic Procedure, Cath Peripheral, Ntrwe-Mlymaid-Ylz-Off, Peripheral vascular Intervention, Angioplasty, Angioplasty Fem/Pop, Angioplasty Iliac Initial 11:23:21 Procedure and supply charges have been captured, reviewed, submitted and are correct. 11:23:25 Procedure Complication : No complications 11:23:27 Vital chart was stopped 11:23:27 See physician's report for complete and final results. 11:23:30 Report given to Pre/Post Procedure Room. 11:23:33 Patient transfered to Pre/Post Procedure Room with Stretcher. 11:23:35 Procedure ended. 11:23:35 Full Disclosure recording stopped 11:23:44 ACC-PCI Only Patient was given prescriptions, or instructed by Peter Breaux MD to start/continue the following medications upon discharge: Plavix 11:23:47 End room use (Document Last) Intervention Summary Intervention Notes Time ActionType Lesion and Equipment Action# Pressure Duration Attributes Used 11:12:08 Inflate Proximal POWERFLEX 1 6 00:10 balloon Common PRO 6.0 X Femoral, 20 X 135 Left balloon ([id number]) 11:14:15 Reinflate Proximal POWERFLEX 1 15 00:10 balloon Common PRO 6.0 X Iliac, Left 20 X 135 balloon ([id number]) 11:15:05 Reinflate Proximal POWERFLEX 2 17 00:10 balloon Common PRO 6.0 X Iliac, Left 20 X 135 balloon ([id number]) Device Usage Item Name Manufacture Quantity Catalog Hospital Part Current Minimal Lot# / Number Charge Number Stock Stock Serial# Code ACIST Acist 1 87672 850215 337318 058896 20 Syringe Medical (74089) Systems Inc Medline Cath Cardinal 1 [id number] 049155 89022 073979 5 Pack Health ([id number]) Bag Decanter Microtek 1 2001S 673710 87136 922603 5 (2001S) Medical Inc. DIAGNOSTIC St Rian 1 105087 274558 800100 220692 30 WIRE .035 260cm J wire (249113) ACIST Hand Acist 1 40148 463477 909094 124519 5 Control Medical (94466) Systems Inc ACIST Acist 1 00286 617734 569249 240872 5 Manifold Medical (86472) Systems Inc Tegaderm 4 x 3M 1 1626W 071987 423971 762851 5 4 (1626W) SHEATH 5Fr Merit 1 [id number] 852638 765693 479773 5 Prelude Medical ([id number]) DIAGNOSTIC Cardinal 1 [id number] 751765 402788 471541 10 UF 5Fr Health catheter ([id number]) GLIDE WIRE Terumo 1 VB0790 965763 668739 576960 5 Super Stiff Angled 260cm (LF4249) SHEATH 6FR Terumo 1 RSR01 811390 19725 198826 5 Destination (RSR01) SHEATH 6Fr Merit 1 [id number] 803621 863510 383962 5 Prelude Medical ([id number]) INFLATOR Merit 1 XO4750 446595 869677 202155 15 Merit Medical BasixCompak (OH0540) TORQUE [place] 1 TD01 880089 364449 489765 5 DEVICE Scientific PLASTIC .038 ( TD01) POWERFLEX Cardinal 1 [id number] 114270 160356 831893 5 PRO 6.0 X 20 Health X 135 balloon ([id number]) EXOSEAL 6Fr Cardinal 1 EX600 615418 091993 648736 10 (EX600) Health Signature Audit [place] Stage Time Signature Unsigned Intra-Procedure 12/30/2017 Jewell Mccall 11:26:20 AM RT(R) Signatures Monitor : Jewell Mccall RT Signature : Date : Time : [id number] [place] [address]
[~2017-12-30 07:56] MED LIST changes: +ADVAIR 250/501 DISK INH; +LEVAQUIN750 MG PO; +POTASSIUM CHLO20 MEQ PO
[2017-12-30 08:43] VITALS: BP 113/51; Ht 157.5 cm; Wt 77.3 kg
[2017-12-30 09:08] LABS: ANION GAP 13.4 mmol/L (8-16); CALCIUM 9.1 mg/dL (8.5-10.1); CARBON DIOXIDE 27.5 mmol/L (21.0-32.0); CREATININE - SERUM 1.1 mg/dL (0.6-1.3); POTASSIUM - SERUM 3.9 mmol/L (3.5-5.1)
[2017-12-30 09:28] LABS: BASOPHILS 0.8 % (0-2); EOSINOPHILS 2.7 % (0-7); HEMATOCRIT 37.7 % (36.0-48.0); HEMOGLOBIN 12.5 g/dL (12-16); IMMATURE GRANULOCYTES 0.2 % (0-5); LYMPHOCYTES 20.9 % (15-50); MCH 26.1 pg (26.0-34.0); MCHC 33.2 g/dL (31.0-37.0); MCV 78.7 fL (80.0-100.0); MEAN PLATELET VOLUME 9.7 fL (7.4-10.4); MONOCYTES 6.3 % (2-11); NEUTROPHILS 69.1 % (40-80); PLATELET COUNT 394 10x3/uL (130-400); RBC 4.79 10x6/uL (4.00-5.40); RDW 14.1 % (11.5-14.5); WBC 9.2 10x3/uL (4.8-10.8)
== END | disposition home or self-care (01) ==
LOC: D.CATH 07:56
PROVIDERS: Internal Medicine Interventional Cardiology
DX: I70.219 Atherosclerosis of native arteries of extremities with intermittent claudication, unspecified extremity (principal); T82.856A Stenosis of peripheral vascular stent, initial encounter; Y83.8 Other surgical procedures as the cause of abnormal reaction of the patient, or of later complication, without mention of misadventure at the time of the procedure; I10 Essential (primary) hypertension

== ENCOUNTER → 2018-02-03 10:04 | Outpatient (CLI) | payer BC ==
[2017-12-30 08:43] VITALS: BMI 31.1
== END | disposition home or self-care (01) ==
LOC: D.CT 01-27 13:00
DX: J98.11 Atelectasis (principal); R05 Cough

== ENCOUNTER → 2018-03-16 16:23 | Outpatient (CLI) | payer BC ==
[2017-12-30 08:43] VITALS: BMI 31.1
== END | disposition home or self-care (01) ==
LOC: D.MAMMO 09:45
DX: Z12.31 Encounter for screening mammogram for malignant neoplasm of breast (principal)

== ENCOUNTER → 2018-05-31 09:33 | Outpatient (CLI) | payer BC ==
[2017-12-30 08:43] VITALS: BMI 31.1
[2018-05-31 10:03] LABS: BASOPHILS 0.3 % (0-2); EOSINOPHILS 0.9 % (0-7); HEMATOCRIT 33.5 % (36.0-48.0); IMMATURE GRANULOCYTES 0.3 % (0-5); LYMPHOCYTES 18.5 % (15-50); MCH 25.7 pg (26.0-34.0); MCHC 32.8 g/dL (31.0-37.0); MCV 78.3 fL (80.0-100.0); MEAN PLATELET VOLUME 9.1 fL (7.4-10.4); PLATELET COUNT 394 10x3/uL (130-400); RBC 4.28 10x6/uL (4.00-5.40); RDW 14.8 % (11.5-14.5); WBC 11.6 10x3/uL (4.8-10.8)
[2018-05-31 10:18] LABS: ANION GAP 15.2 mmol/L (8-16); CALCIUM 8.2 mg/dL (8.5-10.1); CARBON DIOXIDE 26.1 mmol/L (21.0-32.0); CREATININE - SERUM 0.9 mg/dL (0.6-1.3); POTASSIUM - SERUM 3.3 mmol/L (3.5-5.1)
== END | disposition home or self-care (01) ==
LOC: D.LAB 09:33
PROVIDERS: Internal Medicine Cardiovascular Disease
DX: Z01.812 Encounter for preprocedural laboratory examination (principal)

== ENCOUNTER 2018-06-30 07:32 | Outpatient (CLI) | payer BC ==
[~2018-06-30] VITALS: Ht 157.5 cm; Wt 82.3 kg
--- NOTE | ~2018-06-30 | HEMODYNAMI ---
PATIENT:ALYSIA MISTRY MEDICAL RECORD: [id number] : 62 LOCATION:[facility] ADMISSION DATE: 06/30/18 Generatedon:06/30/201810:05 Patient name: ALYSIA MISTRY Patient #: [id number] SSN: : 1960 Date of study: 06/30/2018 Page: Of Hemodynamic Procedure Report Patient Data Patient Demographics Procedure consent was obtained First Name: ALYSIA Gender: Female Last Name: FIDELIA : 1960 [facility] Initial: MILDRED Age: 58 year(s) Patient #: [id number] Race: Additional ID: [id number] Contact details Address: [address] [place] [address] State: [place] City: [facility] Zip code: [address] Past Medical History History of disease Date Diagnosis Comments PVD Hypertension Allergies Allergen Reaction Date Comments Reported Sulfa drugs 07/05/2014 Other allergy 06/03/2015 Iodine Sulfa drugs 12/30/2017 Sulfa drugs 06/30/2018 Admission Admission Data Admission Date: 06/30/2018 Admission Time: 7:32 Height (in.): 62 BSA: 1.84 (m2) Height (cm.): 157.48 BMI: 33.29 (kg/m2) Weight (lbs.): 182 Weight (kg.): 82.55 Procedure Procedure Types Cath Procedure Diagnostic Procedure Sedation Charges Moderate Sedation up to 15 minutes Peripheral Cath Diagnostic Procedure Nailer Machine Peripheral Procedures Ftzho-Gjdkhug-Lmq-Off Peripheral vascular Intervention Stent Stent-Fem/Popw/plasty Procedure Description Procedure Date Procedure Date: 06/30/2018 Procedure Start Time: 9:46 Procedure End Time: 10:05 Procedure Staff Name Function Peter Breaux MD Performing Physician Bria Pitts RT Monitor Lata Hernandez RT Scrub Lara Gill RN Nurse Biju Knapp RN Life Enrichment Manager Procedure Data Cath Procedure Fluoroscopy Diagnostic fluoroscopy Total fluoroscopy Time: 4.6 time: 4.6 min min Diagnostic fluoroscopy Total fluoroscopy dose: 183 dose: 183 mGy mGy Contrast Material Contrast Material Type Amount (ml) Isovue 300 93 Entry Location Entry Primary Successful Side Size Upsize Upsize Entry Closure Succes sful Closure Location (Fr) 1 (Fr) 2 (Fr) Remarks Device Remarks Femoral Right 5 Fr 6 Fr 6 Fr Exoseal artery Long Short Estimated blood loss: 5 ml Diagnostic catheters Device Type Used For End Catheter Placement DIAGNOSTIC UF 5Fr Abdominal catheter ([id number]) aortogram with runoff Procedure Complications No complications Procedure Medications Medication Administration Route Dosage 0.9% NaCl I.V. 100 ml/hr Oxygen etCO2 Nasal cannula 2 l/min Lidocaine 2% added to field 20 Heparin Flush Bag added to field 2 bags (1000units/500ml NS) Versed I.V. 2 mg Fentanyl I.V. 100 mcg Heparin Bolus I.V. 5000 units Versed I.V. 2 mg Fentanyl I.V. 50 mcg Versed I.V. 2 mg Fentanyl I.V. 50 mcg Hemodynamics Rest BSA: 1.84 (m2) O2 Consumption: Estimated: 175.4 (ml/min) O2 Consumption indexed: Estimated:95.33 (ml/min/m) Heart Rate: 69 (bpm) Snapshots Pre Cath Intra NCS Post Cath Vital Signs Time Heart Resp SPO2 etCO2 NIBP (mmHg) Rhythm Pain Sedation Rate (ipm) (%) (mmHg) Status Level (bpm) 9:33:12 88 14 100 32.2 143/119(134) NSR 0 (11) 10(A) , No pain 9:37:38 73 16 100 43.5 126/54(95) NSR 0 (11) 10(A) , No pain 9:41:54 73 10 96 32.2 113/59(94) NSR 0 (11) 10(A) , No pain 9:46:12 79 10 98 36.7 122/59(85) NSR 0 (11) 10(A) , No pain 9:50:26 79 16 97 14 104/54(81) NSR 0 (11) 10(A) , No pain 9:54:42 72 16 98 10.5 110/48(85) NSR 0 (11) 10(A) , No pain 9:58:56 74 13 98 25.5 109/59(82) NSR 0 (11) 9(A) , No pain 10:03:08 84 17 100 33 114/58(88) NSR 0 (11) 10(A) , No pain Medications Time Medication Route Dose Verified Delivered Reason Notes Effectiveness by by 9:35:06 0.9% NaCl I.V. 100 Peter Lara used for ml/hr Namita Gill horticultural therapist 9:35:13 Oxygen etCO2 2 Peter Lara used for Nasal l/min Namita Gill procedure cannula RN 9:35:18 Lidocaine 2% added 20ml Peter Peter for local to vial Namita Breaux MD anesthetic field 9:35:23 Heparin Flush added 2 Peter Peter used for Bag to bags Namita Breaux MD procedure (1000units/500ml field NS) 9:42:53 Versed I.V. 2 mg Peter Lara for sedation Namita Gill RN 9:42:58 Fentanyl I.V. 100 Peter Lara for sedation mcg Namita Gill RN 9:47:05 Versed I.V. 2 mg Peter Lara for sedation Namita Gill RN 9:47:18 Fentanyl I.V. 50 Peter Lara for sedation mcg Namita Gill RN 9:54:21 Heparin Bolus I.V. 5000 Peter Lara for verifi ed units Namita Gill anticoagulation with Dr. ORACIO Breaux 9:55:31 Versed I.V. 2 mg Peetr Lara for sedation Namita Gill RN 9:55:34 Fentanyl I.V. 50 Peter Lara for sedation mcg Namita Gill RN Procedure Log Time Note 9:18:13 Signed procedure consent form obtained from patient. 9:18:14 Diagnostic Cath status Elective 9:18:17 Biju Knapp RN sent for patient. Start room use. 9:18:18 Time tracking: Regular hours (M-F 7:00 - 5:00) 9:18:21 Plan of Care:Hemodynamics will remain stable., Cardiac rhythm will remain stable., Comfort level will be maintained., Respiratory function will remain adequate., Patient/ family verbilizes understanding of procedure., Procedure tolerated without complication., Recovers from procedure without complications.. 9:18:32 H&P Date Dictated: 06/14/2018 Within 30 days and on chart., H&P Addendum completed by physician on day of procedure. (MUST COMPLETE FOR ALL OUTPATIENTS). 9:18:38 Patient allergic to Sulfa drugs 9:19:07 Patient Height : 62 inches 9:19:34 Patient Weight : 182 lbs 9:28:19 Patient received from Pre/Post Procedure Room to CCL 1 Alert and oriented. Tansferred to table in Supine position. 9:28:20 Warm blankets applied, and rosanne hugger turned on for patient comfort. 9:28:20 Correct patient and procedure confirmed by team. 9:28:21 ECG and BP/O2 sat monitors applied to patient. 9:28:22 Full Disclosure recording started 9:31:54 Vital chart was started 9:35:06 0.9% NaCl 100 ml/hr I.V. was administered by Lara Gill RN; used for procedure; 9:35:13 Oxygen 2 l/min etCO2 Nasal cannula was administered by Lara Gill RN; used for procedure; 9:35:18 Lidocaine 2% 20ml vial added to field was administered by Peter Breaux MD; for local anesthetic; 9:35:23 Heparin Flush Bag (1000units/500ml NS) 2 bags added to field was administered by Peter Breaux MD; used for procedure; 9:39:52 Baseline sample Acquired. 9:39:58 Rhythm: sinus rhythm 9:40:00 Pre-procedure instructions explained to patient. 9:40:01 Pre-op teaching completed and patient verbalized understanding. 9:40:14 Family in waiting room. 9:40:17 Patient NPO since Midnight. 9:40:20 Is the patient allergic to Iodine/contrast media? No. 9:40:30 Is patient on blood thinner?Yes 9:40:34 Patient diabetic? No. 9:41:32 Previous problem with sedation/anesthesia? No ? 9:41:34 Snore? Yes 9:41:35 Sleep apnea? No 9:41:37 Deviated septum? No 9:41:39 Opens mouth fully? Yes 9:41:40 Sticks out tongue? Yes 9:41:42 Airway obstruction? No ? 9:41:47 Dentures? Yes IN 9:41:52 Pre procedure: right dorsailis pedis pulse 1+ Palpable, but thready & weak; easily obliterated 9:41:56 Pre procedure: left dorsailis pedis pulse 1+ Palpable, but thready & weak; easily obliterated 9:42:01 Patient pain scale 0/10 ?. 9:42:10 IV patent on arrival in left forearm with 0.9% NaCl at [facility]. 9:42:12 Lab results completed and on chart. 9:42:21 Bilateral groins area was prepped with chlora-prep and draped in sterile fashion 9:42:21 Alarms reviewed by R. N. 9:42:21 Sharps counted by scrub and verified by R.N. 9:42:23 Final Timeout: patient, procedure, and site verified with staff and physician. All members of the team are in agreement. 9:42:24 Right groin site verified by team. 9:42:34 Physical assessment completed. ASA score P 2 - A patient with mild systemic disease as per Peter Breaux MD. 9:42:37 Sedation plan: IV Moderate Sedation Medication:Versed, Fentanyl 9:42:53 Versed 2 mg I.V. was administered by Lara Gill RN; for sedation; 9:42:58 Fentanyl 100 mcg I.V. was administered by Lara Gill RN; for sedation; 9:43:09 Use device set CATH PACK 9:43:27 ACIST Syringe (59680) opened to sterile field. 9:43:27 ACIST Hand Control (39108) opened to sterile field. 9:43:28 ACIST Manifold (32973) opened to sterile field. 9:43:28 Medline Cath Pack ([id number]) opened to sterile field. 9:43:29 Bag Decanter (2002) opened to sterile field. 9:43:29 DIAGNOSTIC WIRE .035 260cm J wire (302095) opened to sterile field. 9:43:30 SHEATH 5FR [place] (UPE808) opened to sterile field. 9:46:05 Procedure started. 9:46:09 Local anesthetic to right femoral artery with Lidocaine 2% by Peter Breaux MD.INITIAL ACCESS ONLY 9:47:05 Versed 2 mg I.V. was administered by Lara Gill RN; for sedation; 9:47:18 Fentanyl 50 mcg I.V. was administered by Lara Gill RN; for sedation; 9:48:42 A 5 Fr sheath was inserted into the Right Femoral artery 9:48:50 A DIAGNOSTIC UF 5Fr catheter ([id number]) was advanced over the wire and used for Abdominal aortogram with runoff. 9:49:44 GLIDE WIRE Super Stiff Angled 260cm (ZK0774) opened to sterile field. 9:49:45 SHEATH 6FR Destination (RSR01) opened to sterile field. 9:49:56 INFLATOR Merit BasixCompak (NE0086) opened to sterile field. 9:50:11 SHEATH 6FR [place] (GQD572) opened to sterile field. 9:50:24 SS GLIDE wire advanced. 9:51:00 GLIDE WIRE ADVANCED DOWN LSFA. 9:51:10 Sheath upsized to a 6 Fr Long. 9:51:42 Wire removed. 9:52:45 CHOICE PT Extra Support J 300cm guide wire ([id number]) opened to sterile field. 9:54:21 Heparin Bolus 5000 units I.V. was administered by Lara Gill RN; for anticoagulation; verified with Dr. Breaux 9:55:31 Versed 2 mg I.V. was administered by Lara Gill RN; for sedation; 9:55:34 Fentanyl 50 mcg I.V. was administered by Lara Gill RN; for sedation; 9:55:50 Inflate balloon Inflation number: 1 A SABER 5.0 x 8 x 150 balloon ([id number]) was prepped and advanced across the Distal Common Femoral, Left, then inflated to 9 JASMIN for 0:10 (min:sec). 9:58:16 SMART 6 x 100 x 120 stent ([id number]) was deployed across Distal Common Femoral, Left . 9:58:48 Stent catheter was removed intact over wire. 9:59:47 Inflation number: 2 The SABER 5.0 x 8 x 150 balloon ([id number]) was reinflated across the Distal Common Femoral, Left, to 2 JASMIN for 0:23 (min:sec). 10:00:29 Balloon removed over the wire. 10:00:33 Wire removed. 10:01:00 Sheath upsized to a 6 Fr Short. 10:01:05 Sheath removed intact; hemostasis achieved with Exoseal to the Right Femoral artery. 10:01:08 Procedure ended.(Physican Out) 10:01:41 Fluoroscopy time 04.60 minutes. 10:01:45 Flurop Dose total: 183 10:01:45 Fluoroscopy dose: 183 mGy 10:02:01 Contrast amount:Isovue 300 93ml. 10:02:03 Sharps counted by scrub and verified by R.N. 10:02:15 Insertion/operative site no bleeding no hematoma. 10:02:21 Post-op/insertion site Right Femoral artery dressed using a 4 x 4 and Tegaderm. 10:02:24 Post right femoral artery:stable, clean and dry 10:02:25 Post Procedure Pulses reassessed and unchanged 10:02:28 Post-procedure physical assessment completed. ASA score P 2 - A patient with mild systemic disease as per Peter Breaux MD. 10:02:30 Post procedure rhythm: unchanged. 10:02:33 Estimated blood loss: 5 ml 10:02:34 Post procedure instruction explained to patient.Patient verbalizes understanding. 10:02:34 Patient needs reinforcement of post procedure teaching. 10:03:26 Procedure type changed to Cath procedure, Diagnostic procedure, Sedation Charges, Moderate Sedation up to 15 minutes, Peripheral Cath Diagnostic Procedure, Nailer Machine Peripheral Procedures, Ztwbq-Neaosst-Kmz-Off, Peripheral vascular Intervention, Stent, Stent-Fem/Popw/plasty 10:03:37 Procedure Complication : No complications 10:03:39 See physician's report for complete and final results. 10:03:46 Tegaderm 4 x 4 (1626W) opened to sterile field. 10:03:51 EXOSEAL 6Fr (EX600) opened to sterile field. 10:04:55 Procedure and supply charges have been captured, reviewed, submitted and are correct. 10:05:00 Vital chart was stopped 10:05:02 Report given to Pre/Post Procedure Room. 10:05:05 Patient transfered to Pre/Post Procedure Room with Stretcher. 10:05:14 Procedure ended. 10:05:14 Full Disclosure recording stopped 10:05:18 End room use (Document Last) Intervention Summary Intervention Notes Time ActionType Lesion and Equipment Action# Pressure Duration Attributes Used 9:55:50 Inflate Distal SABER 5.0 x 1 9 00:10 balloon Common 8 x 150 Femoral, balloon Left ([id number]) 9:58:16 Deploy self Distal SMART 6 x 1 expanding Common 100 x 120 stent Femoral, stent Left ([id number]) 9:59:47 Reinflate Distal SABER 5.0 x 2 2 00:24 balloon Common 8 x 150 Femoral, balloon Left ([id number]) Device Usage Item Name Manufacture Quantity Catalog Number Hospital Part Current Minim al Lot# / Charge Number Stock Stock Serial# Code ACIST Acist 1 96020 705073 349497 327004 20 Syringe Medical (12438) Systems Inc ACIST Hand Acist 1 14861 086651 053944 968834 5 Control Medical (01084) Systems Inc ACIST Acist 1 33587 365267 318057 342651 5 Manifold Medical (29423) Systems Inc Medline Medline 1 [id number] 277492 63057 665644 5 Cath Pack ([id number]) Bag Microtek 1 2001S 504013 61841 474313 5 Decanter Medical Inc. () DIAGNOSTIC St [place] 1 998147 959669 715582 314305 30 WIRE .035 260cm J wire (660774) SHEATH 5FR Terumo 1 FOH618 111419 571423 124787 5 [place] (XWQ333) DIAGNOSTIC Cardinal 1 [id number] 900129 185794 010077 10 UF 5Fr Health catheter ([id number]) GLIDE WIRE Terumo 1 TM7810 590599 688721 919621 5 Super Stiff Angled 260cm (OM3122) SHEATH 6FR Terumo 1 RSR01 730060 26953 287311 5 Destination (RSR01) INFLATOR Merit 1 LS8778 175384 639063 721287 15 [facility] Medical BasixCompak (OT3640) SHEATH 6FR Terumo 1 TPP517 597151 084858 185773 40 [place] (GWL431) CHOICE PT [place] 1 [id number] 439194 20181212 951300 5 Extra Scientific Support J 300cm guide wire ([id number]) SABER 5.0 x Cardinal 1 [id number] 485318 863712 773716 5 8 x 150 Health balloon ([id number]) SMART 6 x Cardinal 1 [id number] 948990 006462 0 [id number] 100 x 120 Health stent ([id number]) Tegaderm 4 3M 1 1626W 309421 960501 587918 5 x 4 (1626W) EXOSEAL 6Fr Cardinal 1 EX600 437516 679782 083585 10 (EX600) Health Signature Audit [place] Stage Time Signature Unsigned Intra-Procedure 06/30/2018 Bria 10:05:53 AM Counts RT(R) Signatures Monitor : Bria Signature : Counts RT Date : Time : [address] [address]
[2018-06-30] MEDS ORDERED: CO Q-10100 MG PO (07:48)
[2018-06-30] MEDS ORDERED: CRESTOR10 MG PO (07:49)
[2018-06-30 08:00] VITALS: BP 157/64; Ht 157.5 cm; Wt 82.3 kg
[2018-06-30 08:12] LABS: BASOPHILS 0.8 % (0-2); EOSINOPHILS 3.1 % (0-7); HEMATOCRIT 35.7 % (36.0-48.0); HEMOGLOBIN 11.5 g/dL (12-16); IMMATURE GRANULOCYTES 0.2 % (0-5); LYMPHOCYTES 22.5 % (15-50); MCH 25.6 pg (26.0-34.0); MCHC 32.2 g/dL (31.0-37.0); MCV 79.5 fL (80.0-100.0); MEAN PLATELET VOLUME 9.3 fL (7.4-10.4); MONOCYTES 6.6 % (2-11); NEUTROPHILS 66.8 % (40-80); PLATELET COUNT 353 10x3/uL (130-400); RBC 4.49 10x6/uL (4.00-5.40); RDW 15.4 % (11.5-14.5); WBC 8.3 10x3/uL (4.8-10.8)
[2018-06-30 08:22] LABS: ANION GAP 13.8 mmol/L (8-16); CALCIUM 8.9 mg/dL (8.5-10.1); CARBON DIOXIDE 26.2 mmol/L (21.0-32.0); CREATININE - SERUM 1.1 mg/dL (0.6-1.3)
--- NOTE | 2018-06-30 10:30 | NUR ---
2L NC, NO RESP DISTRESS. RIGHT GROIN 6F EXOSEAL CDI, NO BLEEDING OR HEMATOMA NOTED. NO C/O NAUSEA OR PAIN. VSS. FAMILY AT BEDSIDE, CALL LIGHT WITHIN REACH.
--- NOTE | 2018-06-30 11:00 | NUR ---
RIGHT GROIN 6F EXOSEAL CDI, NO BLEEDING OR HEMATOMA NOTED. NO C/O PAIN OR NAUSEA. 2L NC WITH NO RESP DISTRESS. VSS. WILL CONTINUE TO MONITOR.
--- NOTE | 2018-06-30 11:15 | NUR ---
RESTING QUIETLY WITH EYES CLOSED. RIGHT GROIN 6F EXOSEAL CDI, NO BLEEDING OR HEMATOMA NOTED. DENIES ANY NEEDS OR C/O AT THIS TIME. VSS. CALL LIGHT WITHIN REACH.
--- NOTE | 2018-06-30 11:45 | NUR ---
CONTINUES TO REST COMFORTABLY WITH NO C/O. RIGHT GROIN 6F EXOSEAL CDI, NO BLEEDING OR HEMATOMA NOTED. VSS. WILL CONTINUE TO MONITOR.
--- NOTE | 2018-06-30 12:45 | NUR ---
DR. MAURIEC AT BEDSIDE SPEAKING WITH PT AND FAMILY. RIGHT GROIN 6F EXOSEAL CDI, NO BLEEDING OR HEMATOMA NOTED. 2L NC WITH NO RESP DISTRESS. NO NEEDS. VOICED. VSS. CALL LIGHT WITHIN REACH.
--- NOTE | 2018-06-30 13:15 | NUR ---
HOB ELEVATED 30 DEGREES. RIGHT GROIN 6F EXOSEAL CDI, NO BLEEDING OR HEMATOMA NOTED. VSS. WILL CONTINUE TO MONITOR CLOSELY.
--- NOTE | 2018-06-30 13:40 | NUR ---
LEFT PIV D/C'D WITH CATHETER INTACT, BAND AID TO SITE. UP TO BEDSIDE TO GET DRESSED. AMBULATED TO RESTROOM.
--- NOTE | 2018-06-30 13:50 | NUR ---
DISCHARGE INSTRUCTIONS GIVEN, VERBALIZED UNDERSTANDING.
--- NOTE | 2018-06-30 14:00 | NUR ---
TAKEN OUT VIA WHEELCHAIR BY CATH MOTHER HELPER. LEFT FACILITY WITH FAMILY AND ALL PERSONAL BELONGINGS.
--- NOTE | 2018-07-04 10:22 | OP ---
PATIENT NAME: ALYSIA MISTRY MEDICAL RECORD: [id number] :62 LOCATION:D.CAT ADMISSION DATE: SURGEON: JUDY MAURICE MD DATE OF OPERATION: 06/30/2018 DATE OF SERVICE: 06/30/2018 PROCEDURES: 1. Stent placement SFA, left. 2. ASSISTANT DRAFTER SFA, left. 3. Aortofemoral runoff. 4. Abdominal aortography. INDICATION: Claudication and peripheral vascular disease. PROCEDURE IN DETAIL: After informed consent was obtained and after detailed description of risks, benefits as well as alternative therapies, the patient elected to proceed with angiogram and angioplasty. The right femoral area was prepped and draped in normal sterile fashion. Right femoral artery was cannulated via modified Seldinger technique with placement of a 6-American fsiirg-tqc-dxho sheath. All catheters exchanged through this sheath. FINDINGS: The abdominal aortography was performed. The catheter was pulled down for aortofemoral runoff. Abdominal aortography reveals no significant abdominal aortic disease, no dissection or aneurysmal formation. RIGHT LEG: A. Iliac: The common internal and external iliacs have moderate irregularities, but no flow-limiting stenosis. B. Femoral system: The common and deep femoral are widely patent. Superficial femoral has a previously placed stent with 90-95% in-stent restenosis. C. Popliteal and infrapopliteal vessels are preserved, although diffusely diseased, but there is 3-vessel runoff to the foot. LEFT LEG: A. Iliac: The common internal and external iliacs have moderate irregularities, but no flow-limiting stenosis. B. Femoral system: The common and deep femoral are widely patent. Superficial femoral has at least 80% to 90% stenosis in the mid distal vessel. C. Popliteal and infrapopliteal vessels are patent, although diffusely diseased. ASSISTANT DRAFTER STENT OF THE LEFT SFA: The balloon used was a 5.0 balloon. This yielded a suboptimal result with severe intimal dissection. Stenting was undertaken with a 6 x 100 SMART stent. Result was 0% residual stenosis. OVERALL IMPRESSION: Successful percutaneous transluminal angioplasty stent of the left superficial femoral artery going from 80+ percent initial stenosis to 0% residual. PLAN: For PTCA stent, laser atherectomy of the right SFA in the near future. TRANSINT:[id number] Voice Confirmation ID: [id number] DOCUMENT ID: [id number] OPERATIVE REPORT [id number] FIDELIAALYSIA MILLER JEFFREY MD at 1022 CC: [id number] DICTATION DATE: 06/30/18 1011 VIDEO PRESENTATION OPERATOR: 06/30/18 1141 DEP CLI 06/30/[address] [facility] [address] [place] [address]
== END 2018-06-30 14:00 | disposition home or self-care (01) ==
LOC: D.CATH 07:32
PROVIDERS: Internal Medicine Interventional Cardiology
DX: I70.212 Atherosclerosis of native arteries of extremities with intermittent claudication, left leg (principal)

== ENCOUNTER 2018-07-03 07:33 | Outpatient (CLI) | payer BC ==
[~2018-07-03] VITALS: Ht 157.5 cm; Wt 82.3 kg
--- NOTE | ~2018-07-03 | HEMODYNAMI ---
PATIENT:ALYSIA MISTRY MEDICAL RECORD: [id number] : 62 LOCATION:ERIN ADMISSION DATE: 07/03/18 Generatedon:07/03/201810:12 Patient name: ALYSIA MISTRY Patient #: [id number] SSN: : 1960 Date of study: 07/03/2018 Page: Of Hemodynamic Procedure Report Patient Data Patient Demographics Procedure consent was obtained First Name: ALYSIA Gender: Female Last Name: FIDELIA : 1960 [facility] Initial: MILDRED Age: 58 year(s) Patient #: [id number] Race: Additional ID: [id number] Contact details Address: [address] [place] [address] State: [place] City: [facility] Zip code: [address] Past Medical History History of disease Date Diagnosis Comments PVD Hypertension Allergies Allergen Reaction Date Comments Reported Sulfa drugs 07/05/2014 Other allergy 06/03/2015 Iodine Sulfa drugs 12/30/2017 Sulfa drugs 06/30/2018 Admission Admission Data Admission Date: 07/03/2018 Admission Time: 7:33 Procedure Procedure Types Cath Procedure Diagnostic Procedure Sedation Charges Moderate Sedation up to 30 minutes Peripheral Cath Diagnostic Procedure Abd/Extremity Extremities Right Lower Ext Arterio Peripheral vascular Intervention Atherectomy Atherectomy Fem/Pop w/Stent/Plasty Procedure Description Procedure Date Procedure Date: 07/03/2018 Procedure Start Time: 9:22 Procedure End Time: 10:12 Procedure Staff Name Function Peter Breaux MD Performing Physician Bria Pitts RT Monitor Lara Gill RN Nurse Lata Hernandez RT Scrub Procedure Data Cath Procedure Fluoroscopy Diagnostic fluoroscopy Total fluoroscopy Time: time: 12.9 min 12.9 min Diagnostic fluoroscopy Total fluoroscopy dose: 332 dose: 332 mGy mGy Contrast Material Contrast Material Type Amount (ml) Isovue 300 190 Entry Location Entry Primary Successful Side Size Upsize Upsize Entry Closure Succes sful Closure Location (Fr) 1 (Fr) 2 (Fr) Remarks Device Remarks Femoral Left 6 Fr 6 Fr 6 Fr Exoseal artery Short Long Short Estimated blood loss: 10 ml Diagnostic catheters Device Type Used For End Catheter Placement DIAGNOSTIC IMT 5Fr Procedure Catheter ([id number]) Procedure Complications No complications Procedure Medications Medication Administration Route Dosage 0.9% NaCl I.V. 100 ml/hr Oxygen etCO2 Nasal cannula 2 l/min Lidocaine 2% added to field 20 Heparin Flush Bag added to field 2 bags (1000units/500ml NS) Versed I.V. 2 mg Fentanyl I.V. 100 mcg Heparin Bolus I.V. 5000 units Versed I.V. 2 mg Fentanyl I.V. 50 mcg Versed I.V. 2 mg Versed I.V. 1 mg Fentanyl I.V. 25 mcg Versed I.V. 1 mg Nitroglycerin IC/IA I.C. 800 mcg Fentanyl I.V. 25 mcg Fentanyl I.V. 50 mcg Fentanyl I.V. 50 mcg Hemodynamics Rest Heart Rate: 90 (bpm) Snapshots Pre Cath Intra NCS Post Cath Vital Signs Time Heart Resp SPO2 etCO2 NIBP (mmHg) Rhythm Pain Status Sedation Rate (ipm) (%) (mmHg) Level (bpm) 9:09:52 96 17 98 42 172/99(129) NSR 0 (11) , No 10(A) pain 9:14:20 90 11 98 30.3 152/83(110) NSR 0 (11) , No 10(A) pain 9:18:37 85 13 97 34.8 129/68(95) NSR 0 (11) , No 10(A) pain 9:22:48 80 11 98 38.1 107/62(81) NSR 0 (11) , No 10(A) pain 9:26:56 84 10 96 31.8 116/69(95) NSR 0 (11) , No 10(A) pain 9:31:12 80 11 97 25.7 117/57(84) NSR 0 (11) , No 9(A) pain 9:35:26 81 12 97 38.6 114/68(98) NSR 0 (11) , No 10(A) pain 9:39:40 84 11 97 15.1 114/66(93) NSR 0 (11) , No 9(A) pain 9:43:54 83 11 97 26.5 124/64(95) NSR 0 (11) , No 10(A) pain 9:45:02 83 11 97 28.8 124/65(96) NSR 0 (11) , No 9(A) pain 9:49:14 83 10 97 36.3 109/64(79) NSR 0 (11) , No 9(A) pain 9:53:28 83 11 97 33.3 110/60(86) NSR 0 (11) , No 9(A) pain 9:57:42 81 11 99 21.2 118/59(89) NSR 0 (11) , No 9(A) pain 10:01:52 84 10 96 34.1 104/53(73) NSR 5 (11) , Very 10(A) distressing 10:06:02 89 10 98 32.5 109/50(71) NSR 2 (11) , 10(A) Uncomfortable 10:10:17 83 10 95 35.6 105/54(68) NSR 2 (11) , 10(A) Uncomfortable Medications Time Medication Route Dose Verified Delivered Reason Notes Effectiveness by by 9:08:47 0.9% NaCl I.V. 100 Peter Lara used for ml/hr Namita Gill shrinker 9:08:53 Oxygen etCO2 2 Peter Lara used for Nasal l/min Namita Gill procedure cannula RN 9:08:58 Lidocaine 2% added 20ml Peter Peter for local to vial Namita Breaux MD anesthetic field 9:09:04 Heparin Flush added 2 Peter Peter used for Bag to bags Namita Breaux MD procedure (1000units/500ml field NS) 9:21:45 Versed I.V. 2 mg Peter Lara for sedation Namita Gill RN 9:21:53 Fentanyl I.V. 100 Peter Lara for sedation mcg Namita Gill RN 9:26:39 Versed I.V. 2 mg Peter Lara for sedation Namita Gill RN 9:26:50 Fentanyl I.V. 50 Peter Lara for sedation mcg Namita Gill RN 9:29:00 Heparin Bolus I.V. 5000 Peter Lara for verif ied units Namita Gill anticoagulation with Dr. ORACIO Breaux 9:30:18 Versed I.V. 2 mg Peter Lara for sedation Namita Gill RN 9:36:12 Versed I.V. 1 mg Peter Bermudez for sedation Namita Gill RN 9:38:14 Fentanyl I.V. 25 Peter Bermudez for sedation mcg Namita Gill RN 9:45:10 Fentanyl I.V. 25 Peter Green for sedation mcg Namita Breaux MD 9:45:45 Versed I.V. 1 mg Peter Raineyyla for sedation Namita Gill RN 9:58:25 Nitroglycerin I.C. 800 Peter Green for IC/IA mcg Namita pate 10:00:37 Fentanyl I.V. 50 Peter Bermudez for sedation mcg Namita Gill RN 10:04:26 Fentanyl I.V. 50 Peter Bermudez for sedation mcg Namita Gill RN Procedure Log Time Note 8:56:17 Lara Gill RN sent for patient. Start room use. 8:56:18 Time tracking: Regular hours (M-F 7:00 - 5:00) 8:56:23 Plan of Care:Hemodynamics will remain stable., Cardiac rhythm will remain stable., Comfort level will be maintained., Respiratory function will remain adequate., Patient/ family verbilizes understanding of procedure., Procedure tolerated without complication., Recovers from procedure without complications.. 9:01:52 Patient received from Pre/Post Procedure Room to CCL 1 Alert and oriented. Tansferred to table in Supine position. 9:01:53 Warm blankets applied, and rosanne hugger turned on for patient comfort. 9:01:53 Correct patient and procedure confirmed by team. 9:01:54 Signed procedure consent form obtained from patient. 9:01:55 ECG and BP/O2 sat monitors applied to patient. 9:01:56 Full Disclosure recording started 9:08:37 Vital chart was started 9:08:47 0.9% NaCl 100 ml/hr I.V. was administered by Lara Gill RN; used for procedure; 9:08:53 Oxygen 2 l/min etCO2 Nasal cannula was administered by Lara Gill RN; used for procedure; 9:08:58 Lidocaine 2% 20ml vial added to field was administered by Peter Breaux MD; for local anesthetic; 9:09:04 Heparin Flush Bag (1000units/500ml NS) 2 bags added to field was administered by Peter Breaux MD; used for procedure; 9:14:03 Baseline sample Acquired. 9:14:10 Rhythm: sinus rhythm 9:15:47 H&P Date Dictated: 07/03/2018 New H&P dictated by physician.. 9:15:48 Pre-procedure instructions explained to patient. 9:15:48 Pre-op teaching completed and patient verbalized understanding. 9:15:51 Family in patients room. 9:15:52 Patient NPO since Midnight. 9:16:00 Is the patient allergic to Iodine/contrast media? No. 9:16:11 Is patient on blood thinner?Yes 9:16:13 ACC The patient was administered the following blood thiners within the last 24 hours: ACCPlavix 9:16:45 Patient diabetic? No. 9:16:48 Previous problem with sedation/anesthesia? No ? 9:16:51 Snore? Yes 9:16:52 Sleep apnea? No 9:17:04 Deviated septum? No 9:17:16 Opens mouth fully? Yes 9:17:17 Sticks out tongue? Yes 9:17:20 Airway obstruction? No ? 9:17:23 Dentures? Yes IN 9:17:36 Pre procedure: right dorsailis pedis pulse 1+ Palpable, but thready & weak; easily obliterated 9:17:39 Pre procedure: left dorsailis pedis pulse 2+ Normal; easily identifiable; not easily obliterated 9:17:41 Patient pain scale 0/10 ?. 9:17:47 IV patent on arrival in right forearm with 0.9% NaCl at KVO. 9:17:49 Lab results completed and on chart. 9:17:55 Bilateral groins area was prepped with chlora-prep and draped in sterile fashion 9:17:56 Alarms reviewed by R. N. 9:17:56 Sharps counted by scrub and verified by R.N. 9:17:59 Use device set CATH PACK 9:18:02 DIAGNOSTIC WIRE .035 260cm J wire ([id number]) opened to sterile field. 9:18:03 Medline Cath Pack ([id number]) opened to sterile field. 9:18:03 Bag Decanter (2002) opened to sterile field. 9:18:04 ACIST Manifold (03942) opened to sterile field. 9:18:04 ACIST Hand Control (12383) opened to sterile field. 9:18:05 ACIST Syringe (79683) opened to sterile field. 9:18:37 INFLATOR Merit BasixJacipak (KV1839) opened to sterile field. 9:18:37 GLIDE WIRE Super Stiff Angled 260cm (PB0718) opened to sterile field. 9:18:38 SHEATH 6FR [place] (PXS195) opened to sterile field. 9:21:22 Final Timeout: patient, procedure, and site verified with staff and physician. All members of the team are in agreement. 9:21:27 Left groin site verified by team. 9:21:29 Physical assessment completed. ASA score P 2 - A patient with mild systemic disease as per Peter Breaux MD. 9:21:32 Sedation plan: IV Moderate Sedation Medication:Versed, Fentanyl 9:21:40 Zero performed for pressure channel P1 9:21:45 Versed 2 mg I.V. was administered by Lara Gill RN; for sedation; 9::53 Fentanyl 100 mcg I.V. was administered by Lara Gill RN; for sedation; 9:22:18 Procedure started. 9:22:24 Local anesthetic to left femerol artery with Lidocaine 2% by Peter Breaux MD.INITIAL ACCESS ONLY 9:23:41 A 6 Fr Short sheath was inserted into the Left Femoral artery 9:23:51 A DIAGNOSTIC IMT 5Fr Catheter ([id number]) was advanced over the wire and used for Procedure. 9:24:01 SS GLIDE wire advanced. 9:24:22 WIRE AND CATHETER ADVANCED DOWN RT SFA 9:24:40 CATHETER REMOVED OVER WIRE 9:24:48 Sheath upsized to a 6 Fr Long. 9:25:22 TORQUE DEVICE PLASTIC .038 ( TD01) opened to sterile field. 9:26:39 Versed 2 mg I.V. was administered by Lara Gill RN; for sedation; 9:26:50 Fentanyl 50 mcg I.V. was administered by Lara Gill RN; for sedation; 9:29:00 Heparin Bolus 5000 units I.V. was administered by Lara Gill RN; for anticoagulation; verified with Dr. Breaux 9:30:18 Versed 2 mg I.V. was administered by Lara Gill RN; for sedation; 9:31:12 GRAPHIX wire advanced. 9:35:31 Laser pass to Right Superficial Femoral with Fluence of 60 and Rate of 60. 9:36:12 Versed 1 mg I.V. was administered by Lara Gill RN; for sedation; 9:38:03 Laser catheter removed. 9:38:14 Fentanyl 25 mcg I.V. was administered by Lara Gill RN; for sedation; 9:45:10 Fentanyl 25 mcg I.V. was administered by Peter Breaux MD; for sedation; 9:45:45 Versed 1 mg I.V. was administered by Lara Gill RN; for sedation; 9:46:59 Inflate balloon Inflation number: 1 A POWERFLEX PRO 5.0 x 40 x 135cm balloon ([id number]) was prepped and advanced across the Proximal Superficial Femoral, Right, then inflated to 0 JASMIN for 7:12 (min:sec). 9:47:03 Balloon removed over the wire. 9:50:18 SMART Flex 5 X 60 X 120 stent ([id number]) was deployed across Proximal Superficial Femoral, Right . 9:51:25 Stent catheter was removed intact over wire. 9:52:21 Laser pass to Right Superficial Femoral with Fluence of 60 and Rate of 60. 9:54:20 Laser catheter removed. 9:56:27 Balloon removed over the wire. 9:58:25 Nitroglycerin IC/IA 800 mcg I.C. was administered by Peter Breaux MD; for vasodilation; 10:00:37 Fentanyl 50 mcg I.V. was administered by Lara Gill RN; for sedation; 10:01:19 SMART Flex 5 X 60 X 120 stent ([id number]) was deployed across Mid Superficial Femoral, Right . 10:01:58 Stent catheter was removed intact over wire. 10:03:01 Inflation number: 1 The POWERFLEX PRO 5.0 x 40 x 135cm balloon ([id number]) was reinflated across the Mid Superficial Femoral, Right, to 19 JASMIN for 0:38 (min:sec). 10:03:21 Inflation number: 2 The POWERFLEX PRO 5.0 x 40 x 135cm balloon ([id number]) was reinflated across the Mid Superficial Femoral, Right, to 19 JASMIN for 0:06 (min:sec). 10:03:37 Inflation number: 3 The POWERFLEX PRO 5.0 x 40 x 135cm balloon ([id number]) was reinflated across the Mid Superficial Femoral, Right, to 7 JASMIN for 0:07 (min:sec). 10:03:48 Inflation number: 4 The POWERFLEX PRO 5.0 x 40 x 135cm balloon ([id number]) was reinflated across the Mid Superficial Femoral, Right, to 13 JASMIN for 0:04 (min:sec). 10:04:09 Inflation number: 5 The POWERFLEX PRO 5.0 x 40 x 135cm balloon ([id number]) was reinflated across the Mid Superficial Femoral, Right, to 19 JASMIN for 0:11 (min:sec). 10:04:16 Balloon removed over the wire. 10:04:26 Fentanyl 50 mcg I.V. was administered by Lara Gill RN; for sedation; 10:05:25 Inflation number: 6 The POWERFLEX PRO 5.0 x 40 x 135cm balloon ([id number]) was reinflated across the Mid Superficial Femoral, Right, to 15 JASMIN for 0:06 (min:sec). 10:05:57 Balloon removed over the wire. 10:06:04 Sheath upsized to a 6 Fr Short. 10:06:16 Sheath removed intact; hemostasis achieved with Exoseal to the Left Femoral artery. 10:06:20 Procedure ended.(Physican Out) 10:06:31 Fluoroscopy time 12.90 minutes. 10:06:34 Flurop Dose total: 332 10:06:34 Fluoroscopy dose: 332 mGy 10:08:31 Contrast amount:Isovue 300 190ml. 10:08:33 Sharps counted by scrub and verified by R.N. 10:08:34 Insertion/operative site no bleeding no hematoma. 10:08:37 Post-op/insertion site Left Femoral artery dressed using a 4 x 4 and Tegaderm. 10:08:41 Post left femerol artery:stable, clean and dry 10:08:42 Post Procedure Pulses reassessed and unchanged 10:08:44 Post-procedure physical assessment completed. ASA score P 2 - A patient with mild systemic disease as per Peter Breaux MD. 10:08:46 Post procedure rhythm: unchanged. 10:08:48 Estimated blood loss: 10 ml 10:08:50 Post procedure instruction explained to patient.Patient verbalizes understanding. 10:08:52 Patient needs reinforcement of post procedure teaching. 10:09:12 Procedure Complication : No complications 10:09:14 See physician's report for complete and final results. 10:09:35 EXOSEAL 6Fr (EX600) opened to sterile field. 10:09:35 Tegaderm 4 x 4 (1626W) opened to sterile field. 10:10:43 Procedure type changed to Cath procedure, Diagnostic procedure, Sedation Charges, Moderate Sedation up to 30 minutes, Peripheral Cath Diagnostic Procedure, Abd/Extremity, Extremities, Right Lower Ext Arterio, Peripheral vascular Intervention, Atherectomy, Atherectomy Fem/Pop w/Stent/Plasty 10:11:38 GRAPHIX 300cm 0.014 guide wire ([id number]) opened to sterile field. 10:12:11 Procedure and supply charges have been captured, reviewed, submitted and are correct. 10:12:11 Vital chart was stopped 10:12:13 Report given to Pre/Post Procedure Room. 10:12:16 Patient transfered to Pre/Post Procedure Room with Stretcher. 10:12:18 Procedure ended. 10:12:18 Full Disclosure recording stopped 10:12:34 End room use (Document Last) Intervention Summary Intervention Notes Time ActionType Lesion and Equipment Action# Pressure Duration Attributes Used 9:46:59 Inflate Proximal POWERFLEX 1 0 07:12 balloon Superficial PRO 5.0 x Femoral, 40 x 135cm Right balloon ([id number]) 9:50:18 Deploy self Proximal SMART Flex 1 expanding Superficial 5 X 60 X stent Femoral, 120 stent Right ([id number]) 10:01:19 Deploy self Mid SMART Flex 1 expanding Superficial 5 X 60 X stent Femoral, 120 stent Right ([id number]) 10:03:01 Reinflate Mid POWERFLEX 1 19 00:38 balloon Superficial PRO 5.0 x Femoral, 40 x 135cm Right balloon ([id number]) 10:03:21 Reinflate Mid POWERFLEX 2 19 00:06 balloon Superficial PRO 5.0 x Femoral, 40 x 135cm Right balloon ([id number]) 10:03:37 Reinflate Mid POWERFLEX 3 7 00:08 balloon Superficial PRO 5.0 x Femoral, 40 x 135cm Right balloon ([id number]) 10:03:48 Reinflate Mid POWERFLEX 4 13 00:05 balloon Superficial PRO 5.0 x Femoral, 40 x 135cm Right balloon ([id number]) 10:04:09 Reinflate Mid POWERFLEX 5 19 00:11 balloon Superficial PRO 5.0 x Femoral, 40 x 135cm Right balloon ([id number]) 10:05:25 Reinflate Mid POWERFLEX 6 15 00:06 balloon Superficial PRO 5.0 x Femoral, 40 x 135cm Right balloon ([id number]) Device Usage Item Name Manufacture Quantity Catalog Number Hospital Part Current Minim al Lot# / Charge Number Stock Stock Serial# Code DIAGNOSTIC [facility] 1 [id number] 553203 160430 533803 30 WIRE .035 260cm J wire (358513) Medline Medline 1 [id number] 219139 76610 855299 5 Cath Pack ([id number]) Bag Microtek 1 455654 95067 481190 5 Decanter Medical Inc. () ACIST Acist 1 72704 405426 274579 396713 5 Manifold Medical (04184) Systems Inc ACIST Hand Acist 1 92634 226769 159415 222478 5 Control Medical (85605) Systems Inc ACIST Acist 1 26413 703314 549121 922429 20 Syringe Medical (80457) Systems Inc INFLATOR Merit 1 [id number] 947309 801225 490461 15 Merit Medical BasixCompak (MY5911) GLIDE WIRE Terumo 1 VO1270 601332 849687 200964 5 Super Stiff Angled 260cm (OP4326) SHEATH 6FR Terumo 1 NSZ295 606108 894199 042154 40 [place] (IRR468) DIAGNOSTIC Bruno 1 [id number] 351216 890879 48689 5 IMT 5Fr Scientific Catheter ([id number]) TORQUE Bruno 1 TD01 343321 067109 526490 5 DEVICE Scientific PLASTIC .038 ( TD01) POWERFLEX Cardinal 1 [id number] 913824 432109 678349 5 PRO 5.0 x Health 40 x 135cm balloon (1628720N) SMART Flex Cardinal 2 [id number] 784665 476231 0 119818 5 X 60 X Health 690971 120 stent ([id number]) EXOSEAL 6Fr Cardinal 1 EX600 159674 663418 972381 10 (EX600) Health Tegaderm 4 3M 1 1626W 794511 451005 973120 5 x 4 (1626W) GRAPHIX Bruno 1 [id number] 568656 128048 235092 5 300cm 0.014 Scientific guide wire ([id number]) Signature Audit [place] Stage Time Signature Unsigned Intra-Procedure 07/03/2018 Bria 10:12:43 AM Counts RT(R) Signatures Monitor : Bria Signature : Counts RT Date : Time : [address] [address]
[~2018-07-03 07:33] MED LIST changes: +CO Q-10100 MG PO; +CRESTOR10 MG PO
[2018-07-03 07:55] VITALS: BP 102/60; Ht 157.5 cm; Wt 82.3 kg
[2018-07-03 08:10] LABS: BASOPHILS 0.6 % (0-2); EOSINOPHILS 4.1 % (0-7); HEMATOCRIT 34.1 % (36.0-48.0); HEMOGLOBIN 10.9 g/dL (12-16); IMMATURE GRANULOCYTES 0.2 % (0-5); LYMPHOCYTES 16.7 % (15-50); MCH 25.2 pg (26.0-34.0); MCV 78.9 fL (80.0-100.0); MEAN PLATELET VOLUME 9.2 fL (7.4-10.4); MONOCYTES 8.3 % (2-11); NEUTROPHILS 70.1 % (40-80); PLATELET COUNT 337 10x3/uL (130-400); RBC 4.32 10x6/uL (4.00-5.40); RDW 15.1 % (11.5-14.5); WBC 12.2 10x3/uL (4.8-10.8)
[2018-07-03 08:27] LABS: ANION GAP 15.8 mmol/L (8-16); CALCIUM 8.9 mg/dL (8.5-10.1); CARBON DIOXIDE 24.6 mmol/L (21.0-32.0); CREATININE - SERUM 1.1 mg/dL (0.6-1.3); POTASSIUM - SERUM 4.4 mmol/L (3.5-5.1)
--- NOTE | 2018-07-03 10:39 | NUR ---
PT SLEEPING, RESP WITH EASE ON O2 AT 2LPM VIA NC. SAT IS 95%. 6 FR EXOSEAL IS CDI TO LEFT GROIN, AREA IS SOFT AND NONTENDER. PEDAL PULSES PALPABLE. HOB IS FLAT. NSR. CALL LIGHT IN REACH, FAMILY AT BEDSIDE.
--- NOTE | 2018-07-03 11:06 | NUR ---
DRESSING TO LEFT GROIN IS CDI, AREA IS SOFT AND NONTENDER. PEDAL PULSES PALPABLE. HOB IS FLAT. PT DENIES ANY C/O. VSS.
--- NOTE | 2018-07-03 11:20 | NUR ---
PT ALERT, DENIES ANY C/O. DRESSING CI TO LEFT GROIN, AREA IS SOFT AND NONTENDER. PEDAL PULSES PALPABLE. HOB IS FLAT, VSS, FAMILY AT BEDSIDE.
--- NOTE | 2018-07-03 11:41 | NUR ---
DR MAURICE HAS ROUNDED ON PT. PT IS ALERT, DENIES ANY C/O. DRESSING CDI. PULSES PALPABLE. HOB IS FLAT.
--- NOTE | 2018-07-03 11:46 | NUR ---
SANDWICH AND PO FLUIDS SERVED.
--- NOTE | 2018-07-03 12:27 | NUR ---
DRESSING TO LEFT GROIN IS CDI, PULSES PALPABLE. HOB IS FLAT, VSS, DENIES ANY C/O. FAMILY AT BEDSIDE, CALL LIGHT IN REACH.
--- NOTE | 2018-07-03 12:56 | NUR ---
DRESSING CDI TO LEFT GROIN, AREA IS SOFT AND NONTENDER. PEDAL PULSES PALPABLE. PT ALERT AND DENIES ANY C/O. VSS.
--- NOTE | 2018-07-03 13:08 | NUR ---
6 FR EXOSEAL IS CDI TO LEFT GROIN, AREA IS SOFT AND NONTEDNER. PEDAL PULSES PALPABLE. HOB IS FLAT, AT BEDSIDE.
--- NOTE | 2018-07-03 13:43 | NUR ---
DRESSING CDI TO LEFT GROIN, HOB FULLY ELEVATED.
--- NOTE | 2018-07-03 13:55 | NUR ---
IV DC'D WITH CATH INTACT AND PT ASSISTED TO THE BATHROOM VIA WC, PT VOIDED QS. DRESSING REMAINS CDI TO LEFT GROIN. PT DRESSING FOR DC TO HOME WITH ASSIST.
--- NOTE | 2018-07-03 14:22 | NUR ---
PT HAS DRESSED FOR DC TO HOME. DENIES ANY C/O. DC INSTRUCTIONS REVIEWED WITH PT WHO VERBALIZES UNDERSTANDING. PT ESCORTED TO PRIVAT AUTO VIA WC BY NURSE WITH DRIVING HER HOME.
--- NOTE | 2018-07-04 10:23 | OP ---
PATIENT NAME: ALYSIA MISTRY MEDICAL RECORD: [id number] :62 LOCATION:D.CAT ADMISSION DATE: SURGEON: JUDY MAURICE MD DATE OF OPERATION: 07/03/2018 DATE OF SERVICE: 07/03/2018 PROCEDURES: 1. Stent placement SFA, right. 2. CLIN APPLICATION SPECIALIST SFA, right. 3. Laser atherectomy SFA, right. 4. Unilateral extremity angiography. INDICATION: Claudication and peripheral vascular disease. PROCEDURE IN DETAIL: After informed consent was obtained and after a detailed description of the risks, benefits as well as alternative therapies, the patient elected to proceed with angiogram and angioplasty. The left femoral area was prepped and draped in normal sterile fashion. Left femoral artery was cannulated via modified Seldinger technique with placement of 6-Irish dsipda-wrx-mqco sheath. All catheters exchanged through this sheath. FINDINGS: The right lower extremity is 99% stenosed in multiple areas. This is addressed with a peripheral laser catheter, multiple passes were made at 60/60. Stenting was undertaken with a 5 x 60 SMART stent times 2. Result was 0% residual stenosis. OVERALL IMPRESSION: Successful laser atherectomy, percutaneous transluminal angioplasty stent of the right lower extremity superficial femoral artery going from 99% initial stenosis to 0% residual. TRANSINT:[id number] Voice Confirmation ID: [id number] DOCUMENT ID: [id number] JUDY MAURICE MD at 1023 CC: [id number] DICTATION DATE: 07/03/18 1012 WEB PRESS OPERATOR ASSISTANT: 07/03/18 1027 DEP CLI 07/03/18 [place] [id number]
--- NOTE | 2018-07-04 10:23 | HP ---
PATIENT: ALYSIA MISTRY MEDICAL RECORD: [id number] ACCOUNT: [id number] LOCATION:ERIN : 62 ADMISSION DATE: 07/03/18 PCP: HERSON TYSON MD HISTORY AND PHYSICAL EXAMINATION DIAGNOSES: 1. Claudication. 2. Peripheral vascular disease. 3. Recent percutaneous transluminal angioplasty stent of left lower extremity with concomitant disease of right lower extremity. 4. Coronary artery disease. 5. Hypertension. 6. Hyperlipidemia. 7. Smoking. HISTORY OF PRESENT ILLNESS: Mrs. Mistry presents with claudication bilaterally, left was actually greater than right. She underwent GEOGRAPHIC INFORMATION SYSTEMS MANAGER stent of the left leg, is now brought back for GEOGRAPHIC INFORMATION SYSTEMS MANAGER stent of the right leg. PHYSICAL EXAMINATION: GENERAL APPEARANCE: Well-nourished, well-developed, appears stated age. Level of distress, comfortable. PSYCHIATRIC: Mental status, alert, normal affect. Orientation, oriented to time, place and person. EYES: Lids and conjunctiva, noninjected. No discharge, no pallor. ENT: Lips, teeth, gums, normal dentition. Oropharynx, no cyanosis, no pallor. NECK: Carotid arteries, bilateral normal upstroke, no bruits, no thrills. JUGULAR VEINS: No jugular venous pressure or distention. CERVICAL LYMPH NODES: Nontender, nonenlarged. THYROID: Not enlarged. Nontender. No nodules. LUNGS: Respiratory effort, unlabored. CHEST: Normal curvature. No thoracic deformity. No chest wall tenderness. Percussion, resonant. Auscultation, clear. No wheezes, no rales, no rhonchi. CARDIOVASCULAR: Precordial exam, nondisplaced. No heaves or pericardial thrills. Rate and rhythm, regular. Heart sounds, normal S1, normal S2. No S3, no gallop, no rub. Systolic murmur, not heard. Diastolic murmur, not heard. EXTREMITIES: No cyanosis, no edema. Peripheral pulses, full and equal in all extremities, except as noted. No bruits appreciated. ABDOMEN: Soft, nondistended. Normal aorta. No bruit. Nontender. No masses. Liver, nontender, no hepatomegaly. Spleen, nontender, no splenomegaly. MUSCULOSKELETAL: No joint tenderness. No joint swelling. No erythema. NEUROLOGICAL: Normal gait, normal strength, normal tone. SKIN: Warm and dry. OVERALL IMPRESSION: Claudication with critical disease of the right lower extremity. We will proceed with transcatheter revascularization of the right lower extremity. TRANSINT:[id number] Voice Confirmation ID: [id number] DOCUMENT ID: [id number] HISTORY AND PHYSICAL [id number] ALYSIA MISTRY JEFFREY MD at 1023 CC: [id number] DICTATION DATE: 07/03/18 1010 HARP MAKER: 07/03/18 1019 DEP CLI 07/03/18 [facility] [facility] [id number] [place] [address]
== END 2018-07-03 14:20 | disposition home or self-care (01) ==
LOC: D.CATH 07:33
PROVIDERS: Internal Medicine Interventional Cardiology
DX: I70.213 Atherosclerosis of native arteries of extremities with intermittent claudication, bilateral legs (principal)

== ENCOUNTER → 2018-11-15 10:12 | Outpatient (CLI) | payer BC ==
[2018-07-03 07:55] VITALS: BMI 33.2
== END | disposition home or self-care (01) ==
LOC: D.RAD 10:12
PROVIDERS: ATTEND Family Medicine
DX: R91.1 Solitary pulmonary nodule (principal); F17.200 Nicotine dependence, unspecified, uncomplicated

== ENCOUNTER 2018-12-08 08:33 | Outpatient (CLI) | payer BC ==
[~2018-12-08] VITALS: Ht 157.5 cm; Wt 85.9 kg
--- NOTE | ~2018-12-08 | HEMODYNAMI ---
PATIENT:ALYSIA MISTRY MEDICAL RECORD: [id number] : 62 LOCATION:[facility] ADMISSION DATE: 12/08/18 Generatedon:12/08/201811:00 Patient name: ALYSIA MISTRY Patient #: [id number] SSN: : 1960 Date of study: 12/08/2018 Page: Of Hemodynamic Procedure Report Patient Data Patient Demographics Procedure consent was obtained First Name: ALYSIA Gender: Female Last Name: FIDELIA : 1960 [facility] Initial: MILDRED Age: 58 year(s) Patient #: [id number] Race: Additional ID: [id number] Contact details Address: [address] [place] [address] State: [place] City: [facility] Zip code: [address] Past Medical History History of disease Date Diagnosis Comments PVD Hypertension Allergies Allergen Reaction Date Comments Reported Sulfa drugs 07/05/2014 Other allergy 06/03/2015 Iodine Sulfa drugs 12/30/2017 Sulfa drugs 06/30/2018 Sulfa drugs 12/08/2018 Admission Admission Data Admission Date: 12/08/2018 Admission Time: 8:33 Height (in.): 62 BSA: 1.87 (m2) Height (cm.): 157.48 BMI: 34.68 (kg/m2) Weight (lbs.): 189.6 Weight (kg.): 86 Lab Results Lab Result Date: 12/08/2018 Lab Result Time: 0:00 Biochemistry Name Units Result Min Max BUN mg/dl 13 --(--*-)-- 7 18 Creatinine mg/dl 1 --(--*-)-- 0.6 1.3 CBC Name Units Result Min Max Hematocrit % 36.6 *-(----)-- 42 54 Hemoglobin g/dl 12 *-(----)-- 13.5 17.5 Procedure Procedure Types Cath Procedure Peripheral Cath Diagnostic Procedure Wire Splicer Peripheral Procedures Otdaw-Hebqxcr-Kee-Off Procedure Description Procedure Date Procedure Date: 12/08/2018 Procedure Start Time: 10:27 Procedure End Time: 10:59 Procedure Staff Name Function Peter Breaux MD Performing Physician Quinton Chavez RT Monitor Lata Hernandez RT Scrub Laron Kennedy RN Nurse Hubert Oro RN Logistics Planning Manager Procedure Data Cath Procedure Fluoroscopy Diagnostic fluoroscopy Total fluoroscopy Time: 5.7 time: 5.7 min min Diagnostic fluoroscopy Total fluoroscopy dose: 581 dose: 581 mGy mGy Contrast Material Contrast Material Type Amount (ml) Isovue 300 97 Entry Location Entry Primary Successful Side Size (Fr) Upsize Upsize Entry Closure S uccessful Closure Location 1 (Fr) 2 (Fr) Remarks Device Remarks Femoral Right 5 Fr Exoseal artery Femoral Left 6 Fr 6 Fr Exoseal artery Mid-Length Short Estimated blood loss: 10 ml Diagnostic catheters Device Type Used For End Catheter Placement DIAGNOSTIC UF 5Fr Procedure catheter ([id number]) Procedure Complications No complications Procedure Medications Medication Administration Route Dosage 0.9% NaCl I.V. 100 ml/hr Oxygen etCO2 Nasal cannula 2 l/min Heparin Flush Bag added to field 2 bags (1000units/500ml NS) Lidocaine 2% added to field 20 Versed I.V. 2 mg Fentanyl I.V. 100 mcg Versed I.V. 2 mg Fentanyl I.V. 100 mcg Versed I.V. 2 mg Heparin Bolus I.V. 4000 units Fentanyl I.V. 50 mcg Fentanyl I.V. 50 mcg Hemodynamics Rest BSA: 1.87 (m2) HGB: 12 (g/dl) O2 Consumption: Estimated: 188.38 (ml/min) O2 Cons umption indexed: Estimated:100.74 (ml/min/m) Heart Rate: 83 (bpm) Snapshots Pre Cath Intra NCS Post Cath Vital Signs Time Heart Resp SPO2 etCO2 NIBP (mmHg) Rhythm Pain Sedation Rate (ipm) (%) (mmHg) Status Level (bpm) 9:51:36 85 17 100 33.9 170/82(122) NSR 0 (11) 10(A) , No pain 9:55:56 77 16 100 27.1 154/75(117) NSR 0 (11) 10(A) , No pain 10:00:12 69 12 93 38.4 122/62(92) NSR 0 (11) 10(A) , No pain 10:04:24 72 19 96 41.4 125/66(101) NSR 0 (11) 10(A) , No pain 10:08:34 71 14 96 42.2 143/74(105) NSR 0 (11) 10(A) , No pain 10:12:52 82 19 98 47.5 149/70(108) NSR 0 (11) 10(A) , No pain 10:17:10 70 60 98 46 136/65(113) NSR 0 (11) 10(A) , No pain 10:21:22 69 10 95 24.1 126/61(102) NSR 0 (11) 10(A) , No pain 10:25:34 75 13 89 33.1 104/68(92) NSR 0 (11) 10(A) , No pain 10:29:38 72 15 93 42.2 102/63(94) NSR 0 (11) 10(A) , No pain 10:33:38 75 16 93 14.3 116/73(104) NSR 0 (11) 9(A) , No pain 10:37:45 74 18 94 47.5 132/65(101) NSR 0 (11) 9(A) , No pain 10:42:52 84 15 96 26.3 151/81(117) NSR 0 (11) 9(A) , No pain 10:47:06 74 17 94 42.9 141/73(102) NSR 0 (11) 10(A) , No pain 10:51:20 69 19 89 27.9 117/67(88) NSR 0 (11) 10(A) , No pain 10:55:28 72 5 90 15.8 117/67(88) NSR 0 (11) 10(A) , No pain 10:59:28 0 No Cuff NSR 0 (11) 10(A) , No pain Medications Time Medication Route Dose Verified Delivered Reason Notes Effectiveness by by 9:52:04 0.9% NaCl I.V. 100 Laron Laron Per physician ml/hr Brent Kennedy RN RN 9:52:13 Oxygen etCO2 2 Laron Laron for low 02 sats Nasal l/min Brent Kennedy cannula RN RN 9:52:25 Heparin Flush added 2 Laron Laron used for Bag to bags Brent Kennedy procedure (1000units/500ml field RN RN NS) 9:52:40 Lidocaine 2% added 20ml Laron Laron for local to vial Lorar Kennedy anesthetic field RN RN 10:23:12 Versed I.V. 2 mg Laron Laron for sedation Lorar Kennedy RN RN 10:23:19 Fentanyl I.V. 100 Laron Laron for sedation mcg Brent Kennedy RN RN 10:26:20 Versed I.V. 2 mg Laron Laron for sedation Lorar Kennedy RN RN 10:26:25 Fentanyl I.V. 100 Laron Laron for sedation mcg Brent Kennedy RN RN 10:27:57 Versed I.V. 2 mg Laron Laron for sedation Brent Kennedy RN RN 10:37:23 Heparin Bolus I.V. 4000 Laron Laron for units Lorigan Brent anticoagulation RN RN 10:43:32 Fentanyl I.V. 50 Laron Laron for sedation mcg Brent Kennedy RN RN 10:44:27 Fentanyl I.V. 50 Laron Laron for sedation mcg Brent Kennedy RN audit associate Log Time Note 9:21:54 Signed procedure consent form obtained from patient. 9:21:56 Diagnostic Cath status Elective 9:21:57 Time tracking: Regular hours (M-F 7:00 - 5:00) 9:22:00 Plan of Care:Hemodynamics will remain stable., Cardiac rhythm will remain stable., Comfort level will be maintained., Respiratory function will remain adequate., Patient/ family verbilizes understanding of procedure., Procedure tolerated without complication., Recovers from procedure without complications.. 9:25:08 H&P Date Dictated: 12/05/2018 Within 30 days and on chart., H&P Addendum completed by physician on day of procedure. (MUST COMPLETE FOR ALL OUTPATIENTS). 9:25:20 Patient allergic to Sulfa drugs 9:25:44 Patient Height : 62 inches 9:27:29 PT. ALLERGIC TO CHLORAPREP 9:28:07 Patient Weight : 189.6 lbs 9:30:56 Hubert Oro RN sent for patient. Start room use. 9:41:14 Patient received from Pre/Post Procedure Room to CCL 2 Alert and oriented. Tansferred to table in Supine position. 9:41:16 Warm blankets applied, and rosanne hugger turned on for patient comfort. 9:41:17 Correct patient and procedure confirmed by team. 9:41:18 ECG and BP/O2 sat monitors applied to patient. 9:49:29 Vital chart was started 9:49:49 Full Disclosure recording started 9:49:50 Pre-procedure instructions explained to patient. 9:49:50 Pre-op teaching completed and patient verbalized understanding. 9:49:51 Family in patients room. 9:49:53 Patient NPO since Midnight. 9:49:58 Is the patient allergic to Iodine/contrast media? No. 9:49:59 Is patient on blood thinner?Yes 9:50:01 ACC The patient was administered the following blood thiners within the last 24 hours: ACCPlavix 9:50:05 Patient diabetic? No. 9:50:08 Patient not . Patient is over age 55. 9:50:13 Previous problem with sedation/anesthesia? No ? 9:50:14 Snore? Yes 9:50:14 Sleep apnea? Yes 9:50:16 Deviated septum? No 9:50:16 Opens mouth fully? Yes 9:50:17 Sticks out tongue? Yes 9:50:19 Airway obstruction? No ? 9:50:20 Dentures? No ? 9:50:25 Baseline sample Acquired. 9:50:29 Rhythm: sinus rhythm 9:50:43 Patient pain scale 0/10 ?. 9:50:48 IV patent on arrival in left wrist with 0.9% NaCl at KVO. 9:51:16 Lab Result : Creatinine 1 mg/dl 9:51:16 Lab Result : BUN 13 mg/dl 9:51:16 Lab Result : Hemoglobin 12 g/dl 9:51:16 Lab Result : Hematocrit 36.6 % 9:51:19 Lab results completed and on chart. 9:51:27 Bilateral groins area was prepped with chlora-prep and draped in sterile fashion 9:51:28 Alarms reviewed by R. N. 9:51:28 Sharps counted by scrub and verified by R.N. 9:52:04 0.9% NaCl 100 ml/hr I.V. was administered by Laron Kennedy RN; Per physician; 9:52:13 Oxygen 2 l/min etCO2 Nasal cannula was administered by Laron Lorigan RN; for low 02 sats; 9:52:25 Heparin Flush Bag (1000units/500ml NS) 2 bags added to field was administered by Laron Kennedy RN; used for procedure; 9:52:40 Lidocaine 2% 20ml vial added to field was administered by Laron Kennedy RN; for local anesthetic; 10:16:41 Pre procedure: right dorsailis pedis pulse 1+ Palpable, but thready & weak; easily obliterated 10:16:43 Pre procedure: left dorsailis pedis pulse Doppler 10:16:54 ACIST Syringe (46214) opened to sterile field. 10:16:54 Bag Decanter (2001S) opened to sterile field. 10:16:55 Medline Cath Pack ([id number]) opened to sterile field. 10:16:56 ACIST Hand Control (27927) opened to sterile field. 10:16:56 ACIST Manifold (74173) opened to sterile field. 10:16:57 Tegaderm 4 x 4 (1626W) opened to sterile field. 10:16:59 EMERALD Guide Wire (853-000) opened to sterile field. 10:16:59 SHEATH 5FR Chilcoot (GKL727) opened to sterile field. 10:20:47 Physician arrived 10:20:48 --------ALL STOP TIME OUT------ 10:20:48 Final Timeout: patient, procedure, and site verified with staff and physician. All members of the team are in agreement. 10:20:51 Bilateral groins site verified by team. 10:21:05 Maximum allowable Isovue 300 dose 300ml. Physician notified. (300ml for normal creatinines. For patients with creatinine of 1.7 or higher multiply weight(kg) x 5 divided by creatinine.) 10:21:09 Fire Safety Assessment: A--An alcohol-based skin anteseptic being used preoperatively., C--Open oxygen or nitrous oxide is being used., D--An ESU, laser, or fiber-optic light is being used. 10:21:11 Physical assessment completed. ASA score P 2 - A patient with mild systemic disease as per Peter Breaux MD. 10:21:14 Sedation plan: IV Moderate Sedation Medication:Versed, Fentanyl 10:21:34 Zero performed for pressure channel P1 10:23:12 Versed 2 mg I.V. was administered by Laron Kennedy RN; for sedation; 10:23:19 Fentanyl 100 mcg I.V. was administered by Laron Kennedy RN; for sedation; 10:26:20 Versed 2 mg I.V. was administered by Laron Kennedy RN; for sedation; 10:26:25 Fentanyl 100 mcg I.V. was administered by Laron Kennedy RN; for sedation; 10:27:53 Procedure started. 10::57 Versed 2 mg I.V. was administered by Laron Kennedy RN; for sedation; 10::58 Local anesthetic to right femoral artery with Lidocaine 2% by Peter Breaux MD.INITIAL ACCESS ONLY 10:28:42 A 5 Fr sheath was inserted into the Right Femoral artery 10:29:14 A DIAGNOSTIC UF 5Fr catheter ([id number]) was advanced over the wire and used for Procedure. 10:29:18 Zero performed for pressure channel P1 10:29:29 Abdominal angiogram w/ runoff was performed. 10:29:35 Right leg runoff performed. 10:31:31 Left leg runoff performed. 10:31:38 SHEATH 6FR Brite Tip 35cm ([id number]) opened to sterile field. 10:31:49 Catheter removed. 10:31:55 Local anesthetic to left femerol artery with Lidocaine 2% by Peter Breaux MD.ADDITIONAL ACCESS 10:32:23 SHEATH 6FR Chilcoot (KPZ628) opened to sterile field. 10:32:40 Zero performed for pressure channel P1 10:32:52 INFLATOR Merit BasixCompak (AX8696) opened to sterile field. 10:33:58 A 6 Fr Mid-Length sheath was inserted into the Left Femoral artery 10:36:38 CHOICE PT Extra Support J 300cm guide wire ([id number]) opened to sterile field. 10:37:23 Heparin Bolus 4000 units I.V. was administered by Laron Kennedy RN; for anticoagulation; 10:37:49 LASER Turbo-Power 2.0 atherectomy catheter (541870) opened to sterile field. 10:38:35 CHOICE PT ES wire advanced. 10:38:38 Wire advanced across lesion. 10:39:45 LASER CATHETER PREPPED AND ADVANCE OVER WIRE. 10:39:48 Laser pass to Left Iliac with Fluence of 60 and Rate of 40. 10:42:09 Laser catheter removed. 10:43:32 Fentanyl 50 mcg I.V. was administered by Laron Kennedy RN; for sedation; 10:43:42 Place stent Inflation Number: 1 A RICARDO 7 x 29 x 135 stent ([id number]) was prepped and advanced across the Undefined1 . The stent was deployed at 17 JASMIN for 0:10 (min:sec) . 10:44:27 Fentanyl 50 mcg I.V. was administered by Laron Kennedy RN; for sedation; 10:44:47 Stent catheter was removed intact over wire. 10:44:47 Wire removed. 10:44:57 Sheath upsized to a 6 Fr Short. 10:45:05 EXOSEAL 6Fr (EX600) opened to sterile field. 10:45:06 EXOSEAL 5Fr (EX500) opened to sterile field. 10:45:14 Sheath removed intact; hemostasis achieved with Exoseal to the Left Femoral artery. 10:45:21 Sheath removed intact; hemostasis achieved with Exoseal to the Right Femoral artery. 10:45:22 Procedure ended.(Physican Out) 10:50:49 Fluoroscopy time 05.70 minutes. 10:50:54 Fluoroscopy dose: 581 mGy 10:50:54 Flurop Dose total: 581 10:50:57 Contrast amount:Isovue 300 97ml. 10:50:58 Sharps counted by scrub and verified by R.N. 10:50:59 Insertion/operative site no bleeding no hematoma. 10:51:02 Post-op/insertion site Right Femoral artery dressed using a 4 x 4 and Tegaderm. 10:51:04 Post-op/insertion site Left Femoral artery dressed using a 4 x 4 and Tegaderm. 10:51:07 Post right femoral artery:stable, soft, clean and dry 10:51:12 Post left femerol artery:stable, soft, clean and dry 10:51:13 Post Procedure Pulses reassessed and unchanged 10:51:16 Post-procedure physical assessment completed. ASA score P 2 - A patient with mild systemic disease as per Peter Breaux MD. 10:51:18 Post procedure rhythm: unchanged. 10:51:20 Estimated blood loss: 10 ml 10:51:22 Post procedure instruction explained to patient.Patient verbalizes understanding. 10:51:23 Patient needs reinforcement of post procedure teaching. 10:55:15 Laser total pulses delivered: 3274 10:55:18 Laser total treatment time: 1 minutes 21 seconds 10:59:18 Procedure and supply charges have been captured, reviewed, submitted and are correct. 10:59:20 Procedure Complication : No complications 10:59:22 Vital chart was stopped 10:59:22 See physician's report for complete and final results. 10:59:25 Report given to Pre/Post Procedure Room. 10:59:27 Patient transfered to Pre/Post Procedure Room with Stretcher. 10:59:28 Procedure ended. 10:59:28 Full Disclosure recording stopped 10:59:32 End room use (Document Last) Intervention Summary Intervention Notes Time ActionType Lesion and Equipment Action# Pressure Duration Attributes Used 10:43:42 Place stent Undefined1 RICARDO 7 x 1 17 00:10 29 x 135 stent ([id number]) Device Usage Item Name Manufacture Quantity Catalog Number Hospital Part Current [facility] Lot# / Charge Number Stock Stock Serial# Code ACIST Acist 1 43665 878773 825311 103635 20 Syringe Medical (32756) Systems Inc Bag Microtek 1 2001S 486029 72379 593612 5 Decanter Medical Inc. (2001S) Medline Medline 1 [id number] 068869 27174 913338 5 Cath Pack ([id number]) ACIST Hand Acist 1 89928 012640 376370 842977 5 Control Medical (64324) Systems Inc ACIST Acist 1 37859 306476 633329 251140 5 Manifold Medical (86679) Systems Inc Tegaderm 4 3M 1 1626W 922546 749482 646090 5 x 4 (1626W) EMERALD Cardinal 1 502-455 569123 079640 088276 5 Guide Wire Health (502-455) SHEATH 5FR Terumo 1 EHA358 227546 117672 566648 5 Chilcoot (BWA790) DIAGNOSTIC Cardinal 1 [id number] 193015 187401 633344 10 UF 5Fr Health catheter (972512P5) SHEATH 6FR Cardinal 1 [id number] 394568 925119 251924 1 Brite Tip Health 35cm (540321C) SHEATH 6FR Terumo 1 ZIH203 990502 308995 168294 40 Chilcoot (ZLY045) INFLATOR Merit 1 UV2497 060139 515894 387399 15 [facility] Medical BasixCompak (UI8731) CHOICE PT Oral 1 [id number] 220833 119806 585111 5 Extra Scientific Support J 300cm guide wire (0761350U3) LASER Colette 1 420050 869303 080131655 920554 5 Narz[employer] Technologies 2.0 (306936) atherectomy catheter (604488) RICARDO 7 x Cardinal 1 [id number] 404556 93312 308955 5 [id number] 29 x 135 Health stent ([id number]) EXOSEAL 6Fr Cardinal 1 EX600 525673 817997 961436 10 (EX600) Health EXOSEAL 5Fr Cardinal 1 EX500 898541 403068 820054 10 (EX500) Health Signature Audit [place] Stage Time Signature Unsigned Intra-Procedure 12/08/2018 Quinton Chavez 11:00:24 AM RT(R) Signatures Monitor : Quinton Chavez RT Signature : Date : Time : [place] [id number] [place] [address]
[2018-12-08] MEDS ORDERED: CARDURA4 MG PO (08:44)
[2018-12-08] MEDS ORDERED: KLOR-CON M2020 MEQ PO (08:45)
[2018-12-08] MEDS ORDERED: KLOR-CON 1010 MEQ PO (08:47)
[2018-12-08 08:56] VITALS: BP 116/60; Ht 157.5 cm; Wt 85.9 kg
[2018-12-08 09:16] LABS: ANION GAP 11.7 mmol/L (8-16); CALCIUM 9.2 mg/dL (8.5-10.1); CARBON DIOXIDE 28.2 mmol/L (21.0-32.0); POTASSIUM - SERUM 3.9 mmol/L (3.5-5.1)
[2018-12-08 09:18] LABS: BASOPHILS 0.6 % (0-2); EOSINOPHILS 1.3 % (0-7); HEMATOCRIT 36.6 % (36.0-48.0); IMMATURE GRANULOCYTES 0.2 % (0-5); LYMPHOCYTES 21.8 % (15-50); MCH 24.6 pg (26.0-34.0); MCHC 32.8 g/dL (31.0-37.0); MEAN PLATELET VOLUME 9.6 fL (7.4-10.4); MONOCYTES 8.2 % (2-11); NEUTROPHILS 67.9 % (40-80); PLATELET COUNT 385 10x3/uL (130-400); RBC 4.88 10x6/uL (4.00-5.40); RDW 15.4 % (11.5-14.5); WBC 8.9 10x3/uL (4.8-10.8)
--- NOTE | 2018-12-08 11:03 | NUR ---
PT ARRIVED BY STRETCHER. PLACED ON MONITORS. ASSESSMENT COMPLETED. FAMILY AT BEDSIDE.
--- NOTE | 2018-12-08 11:18 | NUR ---
RIGHT GROIN DRESSING HAS INCREASE IN BLOOD ON DRESSING. NOT SATURATED. PRESSURE HELD FOR 10 MINUTES. NEW DRESSING APPLIED. NO NEW BLEEDING NOTED. VSS. WILL CONTINUE TO MONITOR.
--- NOTE | 2018-12-08 11:48 | NUR ---
PT RESTING COMFORTABLY. PT'S HELPING HER EAT. DENIES NAUSEA. RIGHT GROIN DRESSING C/D/I. NO S/S OF HEMATOMA NOTED. ALL EXT WARM TO TOUCH.
--- NOTE | 2018-12-08 12:20 | NUR ---
DR. MAURICE ROUNDED AND SPOKE WITH PT AND PT'S FAMILY.
--- NOTE | 2018-12-08 12:24 | NUR ---
PT IN SUPINE POSITION. BILATERAL GROIN DRESSINGS C/D/I. NO S/S OF HEMATOMA NOTED. VSS. VISITING WITH FAMILY. NO NEEDS AT THIS TIME.
--- NOTE | 2018-12-08 13:00 | NUR ---
BILATERAL GROIN SITES C/D/I. NO S/S OF HEMATOMA NOTED. ALL EXT WARM TO TOUCH. VSS. DENIES PAIN/NAUSEA. RESTING COMFORTABLY. FAMILY AT BEDSIDE. CALL LIGHT WITHIN REACH.
--- NOTE | 2018-12-08 14:00 | NUR ---
BILATERAL GROIN DRESSINGS C/D/I. NO S/S OF HEMATOMA NOTED. VSS. HEAD OF BED INC TO 30 DEGREES. TOLERATED WELL. FAMILY AT BEDSIDE. CALL LIGHT WITHIN REACH.
--- NOTE | 2018-12-08 14:39 | NUR ---
BILATERAL GROIN DRESSINGS C/D/I. NO S/S OF HEMATOMA NOTED. ALL EXT WARM TO TOUCH. VSS. LEFT WRIST PIV D/C'D WITH CATH TIP INTACT. PT TOLERATED WELL. PT INSTRUCTED TO GET UP AND DRESSED. PT'S FAMILY AT BEDSIDE TO ASSIST. THEY REPORT NO ASSISTANCE NEEDED. CALL LIGHT WITHIN REACH.
--- NOTE | 2018-12-08 15:00 | NUR ---
PT AMBULATED TO RESTROOM. VOIDED WITHOUT DIFFICULTY. BACK TO ROOM. CHECKED BOTH GROINS. DRESSINGS C/D/I. NO S/S OF HEMATOMA NOTED. DISCUSSED DISCHARGE INSTRUCTIONS WITH PT. SHE VOICED UNDERSTANDING. PT TAKEN OUT TO VEHICLE BY WHEELCHAIR. NO S/S OF DISTRESS NOTED. ALL BELONGINGS AND PAPERWORK IN HAND.
--- NOTE | 2018-12-11 09:50 | OP ---
PATIENT NAME: ALYSIA MISTRY MEDICAL RECORD: [id number] :62 LOCATION:D.CAT ADMISSION DATE: SURGEON: JUDY MAURICE MD DATE OF OPERATION: 12/08/2018 PROCEDURES: 1. Laser atherectomy, left iliac. 2. EVP STRATEGY stent, left iliac. 3. Aortofemoral runoff. 4. Abdominal aortography. INDICATION: Claudication, peripheral vascular disease, left leg greater than right. PROCEDURE IN DETAIL: After informed consent was obtained and after a detailed description of risks, benefits as well as alternative therapies, the patient elected to proceed with angiogram and angioplasty. The right and left femoral areas were prepped and draped in normal sterile fashion. Both were cannulated via modified Seldinger technique with placement of for a 5- and 6-Swiss sheath. All catheters exchanged through this sheath. FINDINGS: The abdominal aortography was performed. The catheter was pulled down for aortofemoral runoff. Abdominal aortography reveals no significant abdominal aortic disease, no dissection or aneurysm formation. RIGHT LEG: A. Iliac: The common iliac has previously placed stents, these are with minimal in-stent restenosis. No flow-limiting stenosis. The remainder of the iliac system is widely patent. B. Femoral system: The common femoral has a previously placed stent. This is widely patent with no significant restenosis. The deep femoral is widely patent. Superficial femoral has multiple previously placed stents. These are patent, minimal and vgel-ml-ycuocczd in-stent restenosis, but no flow-limiting stenosis. C. Popliteal and infrapopliteal vessels are patent with good 3-vessel runoff to the foot. LEFT LEG: A. Iliac: The common iliac has previously placed stent with 80% in-stent restenosis. Remainder of the iliac system is patent. B. Femoral system: The common femoral as well has a previously placed stent. This is widely patent with no significant restenosis. The superficial femoral was then totally occluded at the proximal aspect, this reconstitutes distally. The distal superficial femoral is patent. The popliteal is patent. Infrapopliteal vessels are patent. EVP STRATEGY STENT LASER ATHERECTOMY OF THE LEFT ILIAC OSTIUM: We used a peripheral laser catheter at 60/40. Multiple passes were made. Stenting was undertaken with a 7 x 29 Cordis Saida stent. Result was 0% residual stenosis. OVERALL IMPRESSION: Successful EVP STRATEGY stent laser atherectomy of the left iliac going from 80% initial stenosis to 0% residual. She does have 100% stenosis of the SFA. Now, she is amenable to the femoral popliteal bypass graft surgery. TRANSINT:[id number] Voice Confirmation ID: [id number] DOCUMENT ID: [id number] OPERATIVE REPORT [id number] ALYSIA MISTRY JEFFREY MD at 0950 CC: [id number] DICTATION DATE: 12/08/18 1057 ENERGY PROFESSIONAL: 12/08/18 1212 DEP CLI 12/08/18 [id number] [place] [id number]
== END 2018-12-08 15:00 | disposition home or self-care (01) ==
LOC: D.CATH 08:33
PROVIDERS: ATTEND Internal Medicine Interventional Cardiology
DX: I70.213 Atherosclerosis of native arteries of extremities with intermittent claudication, bilateral legs (principal); T82.856A Stenosis of peripheral vascular stent, initial encounter; Z01.812 Encounter for preprocedural laboratory examination

== ENCOUNTER → 2019-02-08 09:24 | Outpatient (CLI) | payer BC ==
[2018-12-08 08:56] VITALS: BMI 34.6
[~2019-02-08 09:24] MED LIST changes: +KLOR-CON 1010 MEQ PO; +KLOR-CON M2020 MEQ PO
== END | disposition home or self-care (01) ==
LOC: D.CT 09:00
PROVIDERS: ATTEND Family Medicine
DX: R91.1 Solitary pulmonary nodule (principal); R05 Cough

== ENCOUNTER 2019-03-19 08:00 | Outpatient (CLI) | payer BC ==
[2018-12-08 08:56] VITALS: BMI 34.6
== END 2019-03-19 23:59 | disposition home or self-care (01) ==
LOC: D.MAMMO 08:00
PROVIDERS: ATTEND Family Medicine
DX: Z12.31 Encounter for screening mammogram for malignant neoplasm of breast (principal)

== ENCOUNTER 2019-05-07 07:02 | Outpatient (CLI) | payer BC ==
[~2019-05-07] VITALS: Ht 157.5 cm; Wt 79.5 kg
--- NOTE | ~2019-05-07 | HEMODYNAMI ---
PATIENT:ALYSIA MISTRY MEDICAL RECORD: [id number] : 62 LOCATION:ERIN ADMISSION DATE: 05/07/19 Generatedon:05/07/201910:15 Patient name: ALYSIA MISTRY Patient #: [id number] SSN: : 1960 Date of study: 05/07/2019 Page: Of Hemodynamic Procedure Report Patient Data Patient Demographics Procedure consent was obtained First Name: ALYSIA Gender: Female Last Name: FIDELIA : 1960 [facility] Initial: MILDRED Age: 58 year(s) Patient #: [id number] Race: Additional ID: [id number] Contact details Address: [address] [place] [address] State: [place] City: [facility] Zip code: [address] Past Medical History History of disease Date Diagnosis Comments PVD Hypertension Allergies Allergen Reaction Date Comments Reported Sulfa drugs 07/05/2014 Other allergy 06/03/2015 Iodine Sulfa drugs 12/30/2017 Sulfa drugs 06/30/2018 Sulfa drugs 12/08/2018 Sulfa drugs 05/07/2019 Admission Admission Data Admission Date: 05/07/2019 Admission Time: 7:02 Lab Results Lab Result Date: 05/07/2019 Lab Result Time: 0:00 Biochemistry Name Units Result Min Max BUN mg/dl 9 --(*---)-- 7 18 Creatinine mg/dl 0.9 --(-*--)-- 0.6 1.3 Procedure Procedure Types Cath Procedure Peripheral Cath Diagnostic Procedure Seamstress Fitter Peripheral Procedures AFRO (Diagnostic) Procedure Description Procedure Date Procedure Date: 05/07/2019 Procedure Start Time: 10:04 Procedure End Time: 10:12 Procedure Staff Name Function Peter Breaux MD Performing Physician Lata Hernandez RT Monitor Carmina Flores RT Scrub Laron Kennedy RN Nurse Procedure Data Cath Procedure Fluoroscopy Diagnostic fluoroscopy Total fluoroscopy Time: 1.5 time: 1.5 min min Diagnostic fluoroscopy Total fluoroscopy dose: 159 dose: 159 mGy mGy Contrast Material Contrast Material Type Amount (ml) Isovue 300 69 Entry Location Entry Primary Successful Side Size Upsize Upsize Entry Closure Succes sful Closure Location (Fr) 1 (Fr) 2 (Fr) Remarks Device Remarks Femoral Right 5 Fr Exoseal artery Estimated blood loss: 5 ml Diagnostic catheters Device Type Used For End Catheter Placement DIAGNOSTIC UF 5Fr Procedure catheter ([id number]) Procedure Complications No complications Procedure Medications Medication Administration Route Dosage 0.9% NaCl I.V. 100 ml/hr Oxygen etCO2 Nasal cannula 2 l/min Heparin Flush Bag added to field 2 bags (1000units/500ml NS) Lidocaine 2% added to field 20 Versed I.V. 2 mg Fentanyl I.V. 100 mcg Versed I.V. 2 mg Fentanyl I.V. 100 mcg Hemodynamics Rest Heart Rate: 78 (bpm) Snapshots Pre Cath Intra NCS Post Cath Vital Signs Time Heart Resp SPO2 etCO2 NIBP (mmHg) Rhythm Pain Sedation Rate (ipm) (%) (mmHg) Status Level (bpm) 9:54:57 74 11 95 34.9 149/69(101) NSR 0 (11) 10(A) , No pain 9:59:15 69 15 98 40.1 134/65(111) NSR 0 (11) 10(A) , No pain 10:03:25 76 10 92 34.2 93/58(75) NSR 0 (11) 9(A) , No pain 10:07:35 81 14 94 9.6 113/60(86) NSR 0 (11) 9(A) , No pain 10:11:47 77 7 96 23 124/71(114) NSR 0 (11) 10(A) , No pain Medications Time Medication Route Dose Verified Delivered Reason Notes Eff ectiveness by by 9:54:43 0.9% NaCl I.V. 100 Laron Laron Per ml/hr Brent Kennedy physician RN RN 9:54:54 Oxygen etCO2 2 Laron Laron for low 02 Nasal l/min Lorigan Brent sats cannula RN RN 9:55:07 Heparin Flush added 2 Laron Laron used for Bag to bags Brent Kennedy procedure (1000units/500ml field RN RN NS) 9:55:20 Lidocaine 2% added 20ml Laron Laron for local to vial Lorigan Lorigan anesthetic field RN RN 10:01:03 Versed I.V. 2 mg Laron Laron for Lorigan Lorigan sedation RN RN 10:01:12 Fentanyl I.V. 100 Laron Laron for mcg Lorigan Lorigan sedation RN RN 10:03:42 Versed I.V. 2 mg Laron Laron for Lorigan Lorigan sedation RN RN 10:03:57 Fentanyl I.V. 100 Laron Laron for mcg Lorigan Lorigan sedation RN echo vasc tech Log Time Note 9:38:56 Informed consent obtained and on chart 9:39:38 Laron Kennedy RN sent for patient. Start room use. 9:39:40 Procedure Status Elective Heart Cath (OP). 9:39:42 Time tracking: Regular hours (M-F 7:00 - 5:00) 9:39:44 Plan of Care:Hemodynamics will remain stable., Cardiac rhythm will remain stable., Comfort level will be maintained., Respiratory function will remain adequate., Patient/ family verbilizes understanding of procedure., Procedure tolerated without complication., Recovers from procedure without complications.. 9:39:58 H&P Date Dictated: 05/03/2019 Within 30 days and on chart., H&P Addendum completed by physician on day of procedure. (MUST COMPLETE FOR ALL OUTPATIENTS). 9:40:22 Patient allergic to Sulfa drugs 9:41:29 Patient received from Pre/Post Procedure Room to CCL 1 Alert and oriented. Tansferred to table in Supine position. 9:41:31 Warm blankets applied, and rosanne hugger turned on for patient comfort. 9:41:31 Correct patient and procedure confirmed by team. 9:41:32 ECG and BP/O2 sat monitors applied to patient. 9:53:45 Vital chart was started 9:53:46 Baseline sample Acquired. 9:53:51 Rhythm: sinus rhythm 9:53:52 Full Disclosure recording started 9:53:52 Pre-procedure instructions explained to patient. 9:53:53 Pre-op teaching completed and patient verbalized understanding. 9:53:54 Family in patients room. 9:53:55 Patient NPO since Midnight. 9:53:56 Is the patient allergic to Iodine/contrast media? No. 9:53:57 Is patient on blood thinner?Yes 9:54:00 ACC The patient was administered the following blood thiners within the last 24 hours: ACCPlavix 9:54:01 Patient diabetic? No. 9:54:04 Patient not . Patient is over age 55. 9:54:09 Previous problem with sedation/anesthesia? No ? 9:54:11 Snore? Yes 9:54:12 Sleep apnea? No 9:54:13 Deviated septum? No 9:54:14 Opens mouth fully? Yes 9:54:14 Sticks out tongue? Yes 9:54:16 Airway obstruction? No ? 9:54:18 Dentures? No ? 9:54:20 Pre procedure: right dorsailis pedis pulse Doppler 9:54:24 Pre procedure: left dorsailis pedis pulse Doppler 9:54:35 Patient pain scale 0/10 LEFT LEG HURTS WORSE. 9:54:42 IV patent on arrival in left hand with 0.9% NaCl at [facility]. 9:54:43 0.9% NaCl 100 ml/hr I.V. was administered by Laron Kennedy RN; Per physician; Verbal order read back and verified. 9:54:54 Oxygen 2 l/min etCO2 Nasal cannula was administered by Laron Kennedy RN; for low 02 sats; Verbal order read back and verified. 9:55:07 Heparin Flush Bag (1000units/500ml NS) 2 bags added to field was administered by Laron Kennedy RN; used for procedure; Verbal order read back and verified. 9:55:20 Lidocaine 2% 20ml vial added to field was administered by Laron Kennedy RN; for local anesthetic; Verbal order read back and verified. 9:56:02 Bilateral groins area was prepped with betadine and draped in sterile fashion 9:56:07 Alarms reviewed by R. N. 9:56:07 Sharps counted by scrub and verified by R.N. 9:57:29 Lab Result : BUN 9 mg/dl 9:57:29 Lab Result : Creatinine 0.9 mg/dl 9:57:32 Lab results completed and on chart. 9:58:[address] BREAUX, PROCEED WITH CASE- FULL LAB IS NOT IN YET 9:58:36 --------ALL STOP TIME OUT------ 9:58:36 Final Timeout: patient, procedure, and site verified with staff and physician. All members of the team are in agreement. 9:58:38 Bilateral groins site verified by team. 9:58:42 Fire Safety Assessment: A--An alcohol-based skin anteseptic being used preoperatively., C--Open oxygen or nitrous oxide is being used., D--An ESU, laser, or fiber-optic light is being used. 9:58:45 Physical assessment completed. ASA score P 2 - A patient with mild systemic disease as per Peter Breaux MD. 9:58:48 Sedation plan: IV Moderate Sedation Medication:Versed, Fentanyl 9:59:39 Use device set CATH PACK 9:59:40 ACIST Syringe (98118) opened to sterile field. 9:59:41 ACIST Hand Control (50947) opened to sterile field. 9:59:41 ACIST Manifold (78232) opened to sterile field. 9:59:41 Medline Cath Pack ([id number]) opened to sterile field. 9:59:41 Bag Decanter (2002S) opened to sterile field. 9:59:42 EMERALD Guide Wire (437-161) opened to sterile field. 9:59:50 SHEATH 5FR [place] (DFV689) opened to sterile field. 10:00:35 2) 60-89 Mildly reduced kidney function, and other findings (as for stage 1) point to kidney disease. 10:01:03 Versed 2 mg I.V. was administered by Laron Kennedy RN; for sedation; Verbal order read back and verified. 10:01:11 Maximum allowable contrast dose (3.7 X eGFR X 0.75)189 ml. 10:01:12 Fentanyl 100 mcg I.V. was administered by Laron Kennedy RN; for sedation; Verbal order read back and verified. 10:01:14 Procedure started. 10:03:42 Versed 2 mg I.V. was administered by Laron Kennedy RN; for sedation; Verbal order read back and verified. 10:03:57 Fentanyl 100 mcg I.V. was administered by Laron Kennedy RN; for sedation; Verbal order read back and verified. 10:04:23 Local anesthetic to right femoral artery with Lidocaine 2% by Peter Breaux MD.INITIAL ACCESS ONLY 10:04:42 Zero performed for pressure channel P1 10:05:06 A 5 Fr sheath was inserted into the Right Femoral artery 10:05:20 A DIAGNOSTIC UF 5Fr catheter ([id number]) was advanced over the wire and used for Procedure. 10:07:21 Abdominal angiogram w/ runoff was performed. 10:07:24 Right leg runoff performed. 10:07:25 Left leg runoff performed. 10:07:30 Catheter removed. 10:07:42 EXOSEAL 5Fr (EX500) opened to sterile field. 10:09:04 Sheath removed intact; hemostasis achieved with Exoseal to the Right Femoral artery. 10:09:06 Procedure ended.(Physican Out) 10:09:15 Fluoroscopy time 01.50 minutes. 10::26 Fluoroscopy dose: 159 mGy 10:: Flurop Dose total: 159 10::34 Dose Area Product 42091 mGy/cm. 10:10:58 Contrast amount:Isovue 300 69ml. 10:11:00 Maximum allowable dose exceeded? No. 10:11:01 Sharps counted by scrub and verified by R.N. 10:11:04 Post-op/insertion site Right Femoral artery dressed using a 4 x 4 and Tegaderm. 10:11:07 Post-procedure physical assessment completed. ASA score P 2 - A patient with mild systemic disease as per Peter Breaux MD. 10:11:10 Post procedure rhythm: sinus rhythm 10:11:14 Estimated blood loss: 5 ml 10:11:15 Post procedure instruction explained to patient.Patient verbalizes understanding. 10:11:17 Patient needs reinforcement of post procedure teaching. 10:11:47 Procedure and supply charges have been captured, reviewed, submitted and are correct. 10:11:49 Procedure Complication : No complications 10:11:51 Vital chart was stopped 10:12:00 AFRO Findings: PVD: MD will discuss options w/ pt 10:12:03 Operative report dictated upon procedure completion. 10:12:03 See physician's report for complete and final results. 10:12:05 Report given to Pre/Post Procedure Room. 10:12:08 Patient transfered to Pre/Post Procedure Room with Bed. 10:12:10 Procedure ended. 10:12:10 Full Disclosure recording stopped 10:12:17 End room use (Document Last) 10:12:39 End room use (Document Last) 10:15:09 End room use (Document Last) Device Usage Item Name Manufacture Quantity Catalog Hospital Part Current Minimal L ot# / Number Charge Number Stock Stock Serial# Code ACIST Acist 1 38503 048373 [id number] 609874 20 Syringe Medical (19438) Systems Inc ACIST Hand Acist 1 62676 [id number] 284687 729405 5 Control Medical (21654) Systems Inc ACIST Acist 1 49356 744862 250680 498024 5 Manifold Medical (53495) Systems Inc Medline Medline 1 [id number] [id number] 27967 927221 5 Cath Pack ([id number]) Bag Microtek 1 357329 38426 224653 5 Decanter Medical Inc. () EMERALD Cardinal 1 502-455 318769 440588 732893 5 Guide Wire Health (502-455) SHEATH 5FR Terumo 1 [id number] 908934 101552 020950 5 [place] (WTB669) DIAGNOSTIC Cardinal 1 [id number] 075438 388077 967980 10 UF 5Fr Health catheter ([id number]) EXOSEAL 5Fr Cardinal 1 EX500 844733 [id number] 10 (EX500) Health Signature Audit [place] Stage Time Signature Unsigned Intra-Procedure 05/07/2019 Lata Hernandez 10:12:39 AM RT(R) Intra-Procedure 05/07/2019 Laron 10:15:09 AM Brent NARAYANAN Intra-Procedure 05/07/2019 Peter Breaux 10:15:30 AM [place] [id number] [place] [address]
[2019-05-07] MEDS ORDERED: OMEPRAZOLE40 MG PO (08:03)
[2019-05-07 08:14] VITALS: BP 130/54; Ht 157.5 cm; Wt 79.5 kg
[2019-05-07 08:33] LABS: CARBON DIOXIDE 27.7 mmol/L (21.0-32.0); CREATININE - SERUM 0.9 mg/dL (0.6-1.3); POTASSIUM - SERUM 3.7 mmol/L (3.5-5.1)
[2019-05-07 10:03] LABS: HEMATOCRIT 36.6 % (36.0-48.0); HEMOGLOBIN 11.6 g/dL (12-16); LYMPHOCYTES 24.4 % (15-50); MCH 23.9 pg (26.0-34.0); MCHC 31.7 g/dL (31.0-37.0); MCV 75.3 fL (80.0-100.0); MEAN PLATELET VOLUME 9.2 fL (7.4-10.4); NEUTROPHILS 68.1 % (40-80); PLATELET COUNT 425 10x3/uL (130-400); RBC 4.86 10x6/uL (4.00-5.40); RDW 16.4 % (11.5-14.5); WBC 8.8 10x3/uL (4.8-10.8)
--- NOTE | 2019-05-07 10:20 | NUR ---
PT RECEIVED VIA STRETCHER FROM CABLE PLACER POST AFRO. PT SLEEPING BUT VERBALLY AROUSABLE. PT DENIES PAIN OR DISCOMFORT. IV PATENT INFUSING VIA ORDERS. R GROIN SOFT, DRESSING CDI NO BLEEDING OR SWELLING NOTED. LEG PINK AND WARM, PEDAL PULSES AUDIBLE X4 W DOPPLER. PT PLACED ON CARDIAC MONITORS, HR NSR RATE 79, BP 148/60, RR 12, SAT 96. O2 ON VIA NC AT 2L. AT BEDSIDE, CALL LIGHT IN REACH. PT INSTRUCTED TO KEEP HEAD ON PILLOW AND R LEG STRAIGHT, SHE VERALIZED UNDERSTANDING.
--- NOTE | 2019-05-07 10:45 | NUR ---
PT SLEEPING, R GROIN SOFT NO BLEEDING OR SWELLING NOTED. VSS. CALL LIGHT IN REACH, AT BEDSIDE.
--- NOTE | 2019-05-07 11:25 | NUR ---
R GROIN SOFT, DRESSING REMAINS CDI. VSS. PT SHIVERING STATES "IM FREEZING". MAGGIE ALEJANDRAGGER PLACED ON PT. HOB ELEVATED SLIGHTLY, SANDWICH AND DRINK SERVED. DR MARUICE WAS AT DISCUSSED PROCEDURE RESULTS AND PLAN OF CARE WITH PT AND .
--- NOTE | 2019-05-07 11:55 | NUR ---
PT DOING WELL, DENIES PAIN OR DISCOMFORT. R GROIN SOFT, DRESSING CDI NO BLEEDING OR HEMATOMA NOTED. LEG PINK AND WARM. VSS. TOLERATED LUNCH AND PO FLUIDS W/O NAUSEA. CALL LIGHT IN REACH
--- NOTE | 2019-05-07 12:10 | NUR ---
DISCHARGE INSTRUCTIONS REVIEWED W PT AND , BOTH VERBALIZED UNDERSTANDING. IV REMOVED W CATH INTACT, MONITORS AND O2 REMOVED. R GROIN SOFT, NO S/S HEMATOMA. PT UP TO DRESS FOR DISCHARGE
--- NOTE | 2019-05-07 12:31 | NUR ---
1220 PT TO BR VIA WC, VOIDING W/O DIFFICULITY. PT DISCHARGED VIA WC TO WAITING IN PRIVATE VEHICLE. PT HAD ALL BELONGINGS AND DISCHARGE INSTRUCTIONS.
--- NOTE | 2019-05-07 17:02 | OP ---
PATIENT NAME: ALYSIA MISTRY MEDICAL RECORD: [id number] :62 LOCATION:D.CAT ADMISSION DATE: SURGEON: JUDY MAURICE MD DATE OF OPERATION: 05/07/2019 PROCEDURES: 1. Aortofemoral runoff. 2. Abdominal aortography. INDICATION: Claudication and peripheral vascular disease. DESCRIPTION OF PROCEDURE: After informed consent was obtained and after a detailed description of risks, benefits as well as alternative therapies, the patient elected to proceed with angiogram. The right femoral area was prepped and draped in normal sterile fashion. The right femoral artery was cannulated via modified Seldinger technique with placement of 5-Uzbek sheath. All catheters exchanged through this sheath. FINDINGS: Abdominal aortography was performed. The catheter was pulled down for aortofemoral runoff. Abdominal aortography reveals no significant abdominal aortic disease, no dissection or aneurysm formation. RIGHT LEG A. Iliac: The common internal and external iliacs have previously placed stents, these are widely patent with no significant restenosis. No disease elsewise throughout the iliacs. B. Femoral system: The common femoral was patent. Superficial femoral has previously placed stents. There is up to 90% in-stent restenosis. After this, the popliteal and infrapopliteal vessels are patent. There is good target for grafting. LEFT LEG: A. Iliac: The common and external iliacs have previously placed stents, these are widely patent with no significant restenosis. No disease elsewise throughout the iliac system of significance. B. Femoral system: The common and deep femoral are widely patent. Superficial femoral has a long area of total occlusion reconstitutes distally. Popliteal and infrapopliteal vessels are patent, good target, suitable for grafting. OVERALL IMPRESSION: Significant SFA disease bilaterally amenable for grafting. Evaluate for bilateral femoral popliteal bypass surgery. TRANSINT:[id number] Voice Confirmation ID: [id number] DOCUMENT ID: [id number] JUDY MAURICE MD at 1702 CC: [id number] DICTATION DATE: 05/07/19 1018 CHEESE PACKER: 05/07/19 1145 DEP CLI 05/07/19 [place] [address]
== END 2019-05-07 12:30 | disposition home or self-care (01) ==
LOC: D.CATH 07:02
PROVIDERS: ATTEND Internal Medicine Interventional Cardiology
DX: I70.213 Atherosclerosis of native arteries of extremities with intermittent claudication, bilateral legs (principal)

== ENCOUNTER → 2019-05-17 09:14 | Outpatient (CLI) | payer BC ==
[2019-05-07 08:14] VITALS: BMI 32.1
[~2019-05-17 09:14] MED LIST changes: +OMEPRAZOLE40 MG PO
== END | disposition home or self-care (01) ==
LOC: D.CT 09:14
PROVIDERS: ATTEND Internal Medicine Cardiovascular Disease
DX: I77.9 Disorder of arteries and arterioles, unspecified (principal)